=== PATIENT | female | born 1935 | race Caucasian/White ===

== ENCOUNTER 2018-04-04 12:23 | Inpatient (IN) | payer OTHER ==
[~2018-04-04] VITALS: Ht 162.6 cm; Wt 89.8 kg
[~2018-04-04 12:23] MED LIST: ACETAMINOPHEN-1 EAC3 PO; ADVAIR 250-501 EACH INH; ALPRAZOLAM0.25 M1 PO; AMBIEN (MONOGRAP5 MG PO; AMBIEN5 M1 PO; BACTRIM DS TAB1 EACH PO; BETAMETHASONE D0.05% TOP; CRANBERRY400 M3 PO; DIOVAN80 M1 PO; DIOVAN80 MG PO; DOXEPIN HCL25 MG PO; ESCITALOPRAM OX10 MG PO; FISH OIL CONC1000 M1 PO; FUROSEMIDE20 M1 PO; HYDROXYZINE HCL50 M1 PO; LASIX40 M1 PO; LEXAPRO 20MG M20 MG PO; LIPITOR20 M2 PO; LOPRESSOR 25MG25 MG PO; LYRICA100 M1 PO; LYRICA150 M1 PO; LYRICA150 MG PO; LYRICA300 M1 PO; METAMUCIL PLUS1 EACH PO; MONTELUKAST SOD10 M1 PO; MULTIPLE VITAM1 EAC2 PO; MYRBETRIQ25 M1 PO; NEXIUM40 M1 PO; OXYBUTYNIN CHLO10 M1 PO; PERCOCET 325 MG1 TA2 PO; PERCOCET 5-3251 EACH PO; PERMETHRIN60 GM TOP; PLAVIX75 M1 PO; PROMETHAZINE HC25 M3 PO; SPIRIVA18 MCG INH; TOPROL XL25 MG PO; TRAMADOL HCL50 M1 PO; VALSARTAN160 M1 PO; VITAMIN B-12500 MC2 PO; VITAMIN D31000 UNI1 PO
--- NOTE | 2018-04-04 13:23 | ED SKIN/ALLERGY COMPLAINT ---
History of Present Illness General Chief Complaint: General Adult Stated Complaint: "WHOLE BODY ITCHING" SEEN YESTERDAY FOR SAME Source: patient, family, old records Exam Limitations: no limitations Allergies Coded Allergies: Penicillins (RASH 07/28/16) adhesive (ITCHY AND RASH 07/28/16) cephalexin (From KEFLEX) (RASH AND NAUSEA 07/28/16) doxycycline (RASH AND NAUSEA 07/28/16) erythromycin base (RASH AND NAUSEA 07/28/16) nitrofurantoin (RASH 07/28/16) Reconcile Medications Alprazolam 0.25 MG TABLET 1 TAB PO TID ANXIETY (Reported) Atorvastatin Calcium (Lipitor) 20 MG TABLET 1 TAB PO DAILY CHOLESTEROL ( Reported) Clopidogrel Bisulfate (Plavix) 75 MG TABLET 1 TAB PO DAILY BLOOD THINNER ( Reported) Escitalopram Oxalate 10 MG TABLET 1 TAB PO DAILY MENTAL HEALTH (Reported) Esomeprazole (Nexium) 40 MG CAPSULE.DR 1 CAP PO DAILY GI (Reported) Hydroxyzine Hydrochloride (Atarax) 50 MG TAB 1 TAB PO TID PRN itching Montelukast Sodium 10 MG TABLET 1 TAB PO DAILY ALLERGIES/RESP (Reported) Oxybutynin Chloride (Oxybutynin Chloride ER) 10 MG TAB.ER.24 1 TAB PO DAILY BLADDER (Reported) Permethrin 5 % CREAM..G. 1 PARKER TOP ONCE scabies massage into skin from head to soles of feet one time, leave on for 8-14 hours then remove by thorough washing Pregabalin (Lyrica) 300 MG CAPSULE 1 CAP PO BID NEUROPATHY (Reported) Tramadol HCl 50 MG TABLET 1 TAB PO DAILY PRN PAIN (Reported) Valsartan 160 MG TABLET 1 TAB PO DAILY BP (Reported) Zolpidem Tartrate (Ambien) 5 MG TABLET 1 TAB PO PRN SLEEP (Reported) Triage Note: 82 Y/O FEMALE C/O CONTINUED ITCHING TO ENTIRE BODY. WAS EVAL'D BY PMD TWICE AND IN ED YESTERADY AND HAS HAD NO RELIEF WITH PRESCRIPTIONS. RECEIVED AN IM SHOT YESTERDAY (UNKNOWN MED PER PT) WHICH SEEMED TO PROVIDE SOME RELIEF. Triage Nurses Notes Reviewed? yes Onset: Gradual Duration: day(s): Timing: recent history Severity: moderate Location: generalized HPI: 82yo female presents to ED complaining of severe itching and rash 4 days. Patient states that she was in [place] for 3 months, she returned to [place] on 03/27. A few days after returning she began developing rash within intense itching. Patient saw her primary care doctor, Dr. Massey, twice over the past few days. He prescribed her prednisone taper. She was seen and evaluated here in the emergency department yesterday and was prescribed permethrin and Benadryl. Patient states despite use of multiple medications her itching has persisted. Patient is very uncomfortable, cannot sit still. She has no history of a similar incident in the past. She denies changes in medications, soaps, detergents. No family members have similar symptoms. She denies fevers, chills , abdominal pain, vomiting. (Marcela Rowley) Vital Signs & Intake/Output Vital Signs & Intake/Output Vital Signs Date Time Temp Pulse Resp B/P B/P Pulse O2 O2 Flow FiO2 Mean Ox Delivery Rate 04/04 1507 97.4 89 18 162/80 92 Room Air 04/04 1243 96.5 85 18 157/92 99 Room Air (Hina ZULETA,Hiro Figueroa) Past History Travel History Traveled to [place] past 21 day No Medical History Any Pertinent Medical History? 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 No (Marcela Rowley) Review of Systems Review of Systems Constitutional: Reports: no symptoms. EENTM: Reports: no symptoms. Respiratory: Reports: no symptoms. Cardiovascular: Reports: no symptoms. GI: Reports: no symptoms. Genitourinary: Reports: no symptoms. Musculoskeletal: Reports: no symptoms. Skin: Reports: see HPI. Neurological/Psychological: Reports: no symptoms. Hematologic/Endocrine: Reports: no symptoms. Immunologic/Allergic: Reports: no symptoms. All Other Systems: Reviewed and Negative (Marcela Rowley) Physical Exam Physical Exam General Appearance: well developed/nourished, alert, awake, moderate distress Head: atraumatic, normal appearance Eyes: Bilateral: normal appearance. Ears, Nose, Throat: hearing grossly normal Neck: normal inspection, supple, full range of motion Respiratory: normal breath sounds, no respiratory distress, lungs clear Cardiovascular: regular rate/rhythm Back: normal inspection, normal range of motion Extremities: normal range of motion Neurologic/Psych: awake, alert, oriented x 3 Skin: scabbing maculo papular rash to trunk and extremities with excoriations present, no burrows, no swelling or warmth (Marcela Rowley) Progress Differential Diagnosis: abscess/cellulitis, anaphylaxis, contact dermatitis, drug reaction, erythema multiforme, piyriasis rosea, shingles, urticaria, neurologic disorder, malignancy, autoimmune condition, inflammatory process, scabies (Marceal Rowley) Plan of Care: Orders Procedure Date/time Status Regular Diet 04/05 B Active Patient Data 04/04 1703 Active TSH REFLEX 04/04 1322 Complete HIGH SENSITIVITY CRP 04/04 1322 Complete COMPREHENSIVE METABOLIC PANEL 04/04 1322 Complete CBC WITHOUT DIFFERENTIAL 04/04 1322 Complete Laboratory Tests 04/04/18 1345: Anion Gap 15, Estimated GFR > 60, BUN/Creatinine Ratio 17.5, Glucose 115 H, Calcium 9.6, Total Bilirubin 0.8, AST 35, ALT 39, Alkaline Phosphatase 111, C- React Prot High Sens 1.2, Total Protein 7.3, Albumin 4.4, Globulin 2.9, Albumin/ Globulin Ratio 1.5, TSH &T3 &Free T4 Intrp 1.980, CBC w Diff MAN DIFF ORDERED, RBC 4.84, MCV 85.2, MCH 27.5, MCHC 32.3 L, RDW 15.7 H, MPV 8.9, Gran % 89.7 H , Lymphocytes % 7.9 L, Monocytes % 1.7, Eosinophils % 0.4, Basophils % 0.3, Absolute Granulocytes 10.4 H, Absolute Lymphocytes 0.9 L, Absolute Monocytes 0.2, Absolute Eosinophils 0, Absolute Basophils 0, Platelet Estimate VERIFIED BY SMEAR, Anisocytosis 1+ Patient's labs are within normal limits. Mild leukocytosis, possibly related to her recent steroid use. Patient remains uncomfortable, in moderate distress relating to her itching. Patient does have a beneficial response with IV Ativan. Etiology of her pruritus is unknown however she has intractable pruritus. Patient has been seen her primary care doctor twice, was seen yesterday in the emergency department, she has failed outpatient treatment modalities. The patient does not feel safe going home based on her persistent symptoms. Patient requires further evaluation including possible consults such as infectious disease. Dr. Santamaria present to see and evaluate the patient agrees with this plan. Physical hospitalist Dr. Christina regarding this patient's general medicine admission. (Jennifer STONE,Marcela Ashton) Comments: 04/04/2018 3:59:19 PM patient has returned from [place] after 4 months. She denies swimming in the ocean. She denies using a hot tub. She denies any recent medical occasion changes except for the discontinuation of Lyrica at the suggestion of her primary care physician. No other occupants of the house in [place] have similar symptoms. There are been no recent changes in laundry detergents or body soaps. Evaluation shows no eosinophilia to suggest an allergic reaction or elevation of white blood cell count to suggest leukemia or lymphoma. The patient's renal functions do not show renal failure. Plan symptomatic care and follow-up with primary care physician or bounty hunter. 04/04/2018 4:42:24 PM today. the patient continues to have intractable pruritus and her aggressive scratching his begun to excoriate her skin. This patient has failed outpatient management via her primary care physician with steroids and Benadryl and is also had 2 emergency department visits. She requires hospitalization for investigation of the underlying cause for her pruritus. Dermatologic conditions such as ectopic dermatitis psoriasis should be investigated, systemic causes such as renal failure, liver disease and the metal logic/[place] proliferative disorders and malignancy should be evaluated. Neurologic causes such as multiple sclerosis and psychogenic causes such as depression or anxiety and conversion should be investigated as well. (Hina ZULETA,Hiro Figueroa) Departure Departure Disposition: STILL A PATIENT Condition: Stable Clinical Impression Primary Impression: Pruritus Secondary Impressions: Multiple excoriations, Rash Referrals: Chico Massey MD (PCP/Family) Departure Forms: Customer Survey General Discharge Information Admission Note Spoke With: Shae Douglas MD Documentation of Exam: Documentation of any treatments & extenuating circumstances including Concerns Regarding Discharge (functional status, medication knowledge or non-compliance, living conditions, etc.) that warrant an admission rather than observation: Patient has intractable pruritus and is in moderate distress, she requires IV medications, infectious disease consult, possible psychiatric consult, failed outpatient therapy, premature discharge medically unsafe] (Jennifer STONE,Marcela Ashton) PA/PUBLIC HEALTH SPECIALIST Co-Sign Statement Statement: ED Attending supervision documentation- [x] I saw and evaluated the patient. I have also reviewed all the pertinent lab results and diagnostic results. I agree with the findings and the plan of care as documented in the PA's/PUBLIC HEALTH SPECIALIST's documentation. Patient returns to the emergency department for evaluation of severe pruritic rash. Physical examination reveals an excoriated maculopapular rash primarily of the trunk and extremities. [] I have reviewed the ED Record and agree with the PA's/PUBLIC HEALTH SPECIALIST's documentation. [] Additions or exceptions (if any) to the PAs/PUBLIC HEALTH SPECIALIST's note and plan are summarized below: [] (Hina ZULETA,Hiro Figueroa)
[2018-04-04 14:11] LABS: ABSOLUTE BASOPHIL COUNT 0 /CUMM (0.0-0.2); ABSOLUTE EOSINOPHIL COUNT 0 /CUMM (0.0-0.7); ABSOLUTE GRANULOCYTE CT 10.4 /CUMM (1.4-6.5); ABSOLUTE LYMPH COUNT 0.9 /CUMM (1.2-3.4); ABSOLUTE MONOCYTE COUNT 0.2 /CUMM (0.10-0.60); BASOPHIL % 0.3 % (0.0-2.0); EOSINOPHIL % 0.4 % (0-5); GRANULOCYTE % 89.7 % (42.2-75.2); HEMATOCRIT 41.2 % (37-47); MEAN CORPUSCULAR HGB 27.5 PG (27.0-31.0); MEAN CORPUSCULAR HGB CONC 32.3 G/DL (33.0-37.0); MEAN CORPUSCULAR VOLUME 85.2 FL (81.0-99.0); MEAN PLATELET VOLUME 8.9 FL (7.4-10.4); PLATELET COUNT 467 /CUMM (130-400); RBC DISTRIBUTION WIDTH 15.7 % (11.5-14.5); RED BLOOD CELL CT 4.84 /CUMM (4.20-5.40); WHITE BLOOD CELL COUNT 11.6 /CUMM (4.8-10.8)
[2018-04-04] MEDS ORDERED: TRAZODONE HCL50 M1 PO (17:24)
--- NOTE | 2018-04-04 17:24 | History & Physical ---
Pasquale ZULETA,[facility] 04/04/18 7493: General Information and HPI MD Statement: I have seen and personally examined IRA PERALTA and documented this H&P. The patient is a 82 year old F who presented with a patient stated chief complaint of [intense pruritus]. Source of Information: patient, family History of Present Illness: 82 -year-old woman with past medical history of hyp TIA, COPD, HYPertension, diastolic congestive heart failure, hyperlipidemia, anxiety, fibromyalgia, and depression came to [facility] with complaints of pruritus. Patient was in usual state of health until this Friday. Patient just came from [place] a week ago, after 2 days patient developed itching and rash. She went to her primary care physician Dr. Nogueira who gave her clobetasol cream. Patient itching and rash worsened and hence she went to Dr. Nogueira again on Friday who gave her a tapering dose of steroids. Patient symptoms worsened and hence she came to [facility] yesterday who gave permethrin suspecting scabies. Patient says her symptoms didn't improve after one application of permethrin. Patient has similar history of itching in December when she was in [place] and was given steroids by mouth. Patient also was admitted for anxiety in February for 4 days and was given Xanax. Patient continued having itching. This time patient developed intense rash associated with itching initially started in her buttock, arms and spread all over her body. This is not associated with any fever, chills, nausea, vomiting, chest pain, dysphagia, shortness of breath. Patient uses Premarin cream for vaginal dryness. Patient also has? Cardiac implant for evaluation of her syncope which was placed at [place] few years ago. last interrogated in August 2017. Allergies/Medications Allergies: Coded Allergies: Penicillins (RASH 07/28/16) adhesive (ITCHY AND RASH 07/28/16) cephalexin (From KEFLEX) (RASH AND NAUSEA 07/28/16) doxycycline (RASH AND NAUSEA 07/28/16) erythromycin base (RASH AND NAUSEA 07/28/16) nitrofurantoin (RASH 07/28/16) Home Med list Alprazolam 0.25 MG TABLET 1 TAB PO TID ANXIETY (Reported) Atorvastatin Calcium (Lipitor) 20 MG TABLET 1 TAB PO DAILY CHOLESTEROL ( Reported) Cholecalciferol (Vitamin D3) (Vitamin D) (Unknown Strength) TABLET (Unknown Dose) PO DAILY SUPPLEMENT (Reported) Clopidogrel Bisulfate (Plavix) 75 MG TABLET 1 TAB PO DAILY BLOOD THINNER ( Reported) Cranberry Fruit (Cranberry) (Unknown Strength) TABLET (Unknown Dose) PO DAILY SUPPLEMENT (Reported) Cyanocobalamin (Vitamin B-12) (Unknown Strength) TABLET (Unknown Dose) PO DAILY SUPPLEMENT (Reported) Escitalopram Oxalate 10 MG TABLET 1 TAB PO DAILY MENTAL HEALTH (Reported) Esomeprazole (Nexium) 40 MG CAPSULE.DR 1 CAP PO DAILY GI (Reported) Hydroxyzine Hydrochloride (Atarax) 50 MG TAB 1 TAB PO TID PRN itching Montelukast Sodium 10 MG TABLET 1 TAB PO DAILY ALLERGIES/RESP (Reported) Multiple Vitamin (Multivitamins) 1 EACH TABLET 1 TAB PO DAILY SUPPLEMENT ( Reported) Melba-3 Fatty Acids/Fish Oil (Fish Oil 1,000 MG Softgel) (Unknown Strength) CAPSULE (Unknown Dose) PO DAILY SUPPLEMENT (Reported) Permethrin 5 % CREAM..G. 1 PARKER TOP ONCE scabies massage into skin from head to soles of feet one time, leave on for 8-14 hours then remove by thorough washing Prednisone 10 MG TABLET STEROID TAPER (Reported) Tramadol HCl 50 MG TABLET 1 TAB PO DAILY PRN PAIN (Reported) Trazodone HCl 50 MG TABLET 1 TAB PO QHS SLEEP (Reported) Valsartan 160 MG TABLET 1 TAB PO DAILY BP (Reported) Compliance With Home Meds: GOOD Past History Travel History Traveled to [place] past 21 day No Medical History Neurological: TIA EENT: NONE Cardiovascular: hypertension, hyperlipidemia Respiratory: COPD, PNEUMOTHORAX S/P CHOLEY 2013 Gastrointestinal: GERD Hepatic: NONE Renal: NONE Musculoskeletal: LEFT ANKLE FUSION Psychiatric: anxiety, insomnia Endocrine: NONE Blood Disorders: NONE Cancer(s): NONE 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 Home Who Do You Live With? spouse Services at Home: None Primary Language: Georgian Smoking Status: Never Smoked ETOH Use: denies use Functional Ability ADLs Independent: dressing, eating, toileting, bathing. Ambulation: walker IADLs Independent: shopping, finances, food prep, telephone, medication admin. Needs Assist: housework, transportation. Review of Systems Review of Systems Constitutional: Reports: no symptoms, see HPI. Cardiovascular: Reports: no symptoms. Respiratory: Reports: no symptoms. GI: Reports: no symptoms. Genitourinary: Reports: no symptoms. Musculoskeletal: Reports: no symptoms. Skin: Reports: erythema, rash. Exam & Diagnostic Data Last 24 Hrs of Vital Signs/I&O Vital Signs Date Time Temp Pulse Resp B/P B/P Pulse O2 O2 Flow FiO2 Mean Ox Delivery Rate 04/04 1908 97.5 84 18 150/84 95 Room Air Room Air 04/04 1811 97.6 89 18 165/95 92 Room Air 04/04 1507 97.4 89 18 162/80 92 Room Air 04/04 1243 96.5 85 18 157/92 99 Room Air Intake & Output 04/04 1600 04/04 0800 04/04 0000 Intake Total Output Total Balance Patient 190 lb Weight Weight Reported by Patient Measurement Method Physical Exam General Appearance Alert, Oriented X3, Cooperative, No Acute Distress Cardiovascular Regular Rate, Normal S1, Normal S2, No Murmurs Lungs Clear to Auscultation Abdomen Soft, No Tenderness, No Hepatospenomegaly Neurological Normal Speech, Strength at 5/5 X4 Ext, Normal Tone, Sensation Intact Extremities No Edema Body Front and Back (Adult) 1) MULTIPLE RED SPOTS 2) 3) 4) 5) 6) 7) 8) 9) Last 24 Hrs of Labs/Magdy: Laboratory Tests 04/04/18 1345: Anion Gap 15, Estimated GFR > 60, BUN/Creatinine Ratio 17.5, Glucose 115 H, Calcium 9.6, Total Bilirubin 0.8, AST 35, ALT 39, Alkaline Phosphatase 111, C- React Prot High Sens 1.2, Total Protein 7.3, Albumin 4.4, Globulin 2.9, Albumin/ Globulin Ratio 1.5, TSH &T3 &Free T4 Intrp 1.980, CBC w Diff MAN DIFF ORDERED, RBC 4.84, MCV 85.2, MCH 27.5, MCHC 32.3 L, RDW 15.7 H, MPV 8.9, Gran % 89.7 H , Lymphocytes % 7.9 L, Monocytes % 1.7, Eosinophils % 0.4, Basophils % 0.3, Absolute Granulocytes 10.4 H, Absolute Lymphocytes 0.9 L, Absolute Monocytes 0.2, Absolute Eosinophils 0, Absolute Basophils 0, Platelet Estimate VERIFIED BY SMEAR, Anisocytosis 1+ Assessment/Plan Assessment: 82 -year-old woman with past medical history of CVA, hypertension, hyperlipidemia, fibromyalgia, and depression came to [facility] with complaints of pruritus. Patient being admitted in [facility] for further evaluation and management. Admission vitals Temperature 96.5, pulse rate 83, respiratory rate 18, blood pressure 157/92, saturating 99 at room air Admission labs WBC 11.6, hemoglobin 13.3, platelet count 467, sodium 134, potassium 5.1, BUN 14 , creatinine 0.8, AST 35, ALP 39, C-reactive protein 1.2, TSH 1.9 ED treatment Ativan 1 mg once, Benadryl IV 25 mg once, Assessment and plan Intense pruritus Rule out scabies * Admitted in [facility] * Contact precaution in view of suspected scabies. Star permethrin cream to be applied every night for 8 hours followed by shower. Family members need to be treated. We will get infectious disease/dermatology on board. * All her medications was reconciled. Xanax is in one of the differential to cause pruritus. * Pruritus-hydroxyzine 25 mg 3 times a day, Benadryl 50 mg IV every 8 when necessary, steroids. * We will check thyroid function study, HbA1c. LFTs-normal. Renal numbers normal. * Patient denies history of fooD/detergents/new medication use other than Xanax. * Patient was on Lyrica for fibromyalgia. Was on 50 mg which the patient herself increased to 300 mg since November 2017. She then eventually stopped using Lyrica for 2 weeks in February. Lyrica also sometimes causes pruritus. * Of note given the nature of appearance of her rash [left shoulder, bilateral arms, left fifth finger on the sites, bilateral legs, buttock, back] recent travel, high suspicion for scabies at present. Patient has similar history many years ago and saw Dr. Barajas. We will try to get records on Friday. Code-full code Diet-regular diet As Ranked By This Provider Problem List: 1. Multiple excoriations 2. Pruritus Core Measures/Misc (08/10) Acute Coronary Syndrome ACS Diagnosis: No Congestive Heart Failure Congestive Heart Failure Diagnosis No Cerebrovascular Accident CVA/TIA Diagnosis: No VTE (View Protocol) VTE Risk Factors Age>40 No Mechanical VTE Prophylaxis d/t Other No VTE Pharm Prophylaxis d/t Other Sepsis (View protocol) Sepsis Present: No Gosia Angela MD 04/04/182039: Resident Review Statement Resident Statement: examined this patient, discussed with internet marketing director, agreed with internet marketing director Other Findings: 82-year-old female with past medical history of hypertension, TIA, fibromyalgia, COPD, COngestive heart failure, depression and anxiety who comes in with intractable pruritus and generalized rash for the past 5 days. She denies any bug bites, mosquito bites, change and creams or soaps or detergents, sharing of clothes or other personnel at night with others. She was recently in [place] where itching started about a month ago. Itching at that time was moderately improved by hydroxyzine but persisted till 5 days ago when he began to worsen and was accompanied by a rash. She lives with her who does not have similar symptoms. She recalls a distant history of similar skin rash that was treated by rn otolaryngology Dr. Barajas. She however would not like to see Dr. Barajas again and would prefer a different rn otolaryngology. She failed outpatient treatment with prednisone taper and clobetasol cream from her primary care, and was given a one-time dose of permethrin cream in the ER yesterday has symptoms have persisted despite these treatments Assessment 1. Intractable pruritus and rash rule out scabies vs medication induced itching (low likelihood from lyrica) Plan -Admit to general medicine floor -IV Benadryl 50 mg every 8 hours; alternate with p.o. hydroxyzine 25 mg every 8 hours -Permethrin cream applied daily-keep on for 8-14 hours x 7days -Benadryl cream for itching -Completed her steroid taper then stop -Hold lyrica for now -Continue her important home medications -Contact precautions for possible scabies -ID consult in a.m. -Consider dermatology consult -Obtain records from Dr. Barajas's office on Friday Taye ZULETA, [facility] 04/04/182058: Attending MD Review Statement Attending Statement Attending MD Statement: examined this patient, discuss w/resident/PA/SUPERVISOR MAILS, agreed w/resident/PA/SUPERVISOR MAILS, discussed with family, reviewed images, amended to note Attending Assessment/Plan: 82 yo F with h/o HTN, TIA, fibromyalgia, recurrent syncope with implantable loop recorder, COPD, anxiety, depression is here for evaluation of intractable pruritus and diffuse erythematous rash that started 5 days ago, mostly on the buttock, arms and back, sparing the palm/ soles and mucosa. She saw her PCP twice this week, was prescribed clobetasol cream and prednisone taper with no effect. She was then seen in the ER one day prior, was given permethrin and atarax but no relief. Pruritus is not worse at night. Patient spends the winter months in [place] and she returned 1 week back. She reports having pruritus 1 month ago for which she was prescribed hydroxyzine and permethrin. She had some relief but pruritus did not resolve. She was then admitted to a [place] hospital (february 2018) for an anxiety attack and subsequently started on Xanax (new medication). Of note, she was on Lyrica 150 mg for fibromyalgia, but she increased the dose of 300 mg since Nov 2017. She has stopped taking it for past 1 week. She denies tick/ insect bites, new detergents, soaps, no personal sharing of items, no swimming in the ocean/ hot tub, etc. She does report a similar rash many years ago, for which she had seen Dr. Barajas but cannot recall exact details of treatment or diagnosis. Vitals stable. Exam: Diffuse multiple small erythematous papules with excoriations noted on the occipital scalp, left shoulder, bilateral extensor aspect of forearm/ elbow, upper abdomen, buttock and lower extremities, spares palm and soles and web spaces. No lesions over buccal mucosa. Labs: WBC 11.6, eosinophils 0.4 (normal), Na 134, bicarb 19, glucose 115, Renal functions and LFTs normal, CRP normal, TSH normal. Assessment and plan: 1. Intractable pruritus 2. Diffuse erythematous rash with excoriations due to itching. Evaluation shows no eosinophilia to suggest an allergic reaction or renal diseaseor cholestasis. The rash could suggest scabies however she was treated with permethrin, not sure if she was compliant though. Also, her has no similar symptoms. Medications such as xanax or lyrica could cause dermatitis although seem less likely. Malignancy needs to be ruled out. 3. Failed outpatient therapy 4. Leukocytosis is steroid induced 5. H/o fibromyalgia 6. H/o anxiety, depression - Admit to General medicine - Maintain contact precautions - ID consult in AM - Check Hb1c and urinalysis - Obtain Chest Xray and HIV - Continue permethrin cream overnight, PRN benadryl and hydroxyzine - Complete prednisone taper - Hold lyrica - Pain management with tramadol - Consider Dermatology consult if symptoms do not improve patient does not wish to see Dr. Barajas - Obtain old records from Dr. Barajas's office. DVT ppx Lovenox. Full code.
[2018-04-04] MEDS ORDERED: VITAMIN D2000 UNI1 PO (17:25)
[2018-04-04] MEDS ORDERED: VITAMIN B-121000 MC3 PO (17:25)
[2018-04-04] MEDS ORDERED: PREDNISONE10 M2 PO (17:25)
[2018-04-04] MEDS ORDERED: MULTIVITAMINS1 EAC9 PO (17:26)
[2018-04-04] MEDS ORDERED: FISH OIL 1,0001 EAC1 PO (17:26)
[2018-04-04] MEDS ORDERED: CRANBERRY400 M3 PO (17:26)
[2018-04-04 19:20] VITALS: BP 138/76
--- NOTE | 2018-04-04 21:07 | Admission Certification ---
Admission Certification Certification Statement - As attending physician, I certify that at the time of - admission, based on clinical presentation, severity of - symptoms, need for further diagnostic testing and - therapeutic interventions, and risk of adverse outcomes - without in-hospital treatment, in my clinical assessment, - this patient requires an acute hospital stay for a minimum - of two nights or longer. I have also considered psychsocial - factors such as support system, advanced age, financial - issues, cognitive issues, and failed out-patient treatments, - past re-admission history, safety of patient, and lack of - compliance as applicable. Specific rationale supporting this admission is: Intractable pruritus and diffuse erythematous rash, failed multiple outpatient treatments, requires inpatient admission for further evaluation and treatment.
[2018-04-04 21:58] VITALS: BP 153/72
--- NOTE | 2018-04-05 06:14 | PN- Housestaff ---
Pasquale ZULETA,Kassandra 04/05/18 0614: Subjective Follow-up For: Intense pruritus Subjective: Patient seen and examined at bedside. No overnight events. Complaints of itching which has got little bit better compared to yesterday. Review of Systems Constitutional: Reports: no symptoms, see HPI. Objective Last 24 Hrs of Vital Signs/I&O Vital Signs Date Time Temp Pulse Resp B/P B/P Pulse O2 O2 Flow FiO2 Mean Ox Delivery Rate 04/05 08 88 148/78 04/05 0647 97.6 81 20 158/98 92 04/04 2158 98.3 93 20 153/72 100 04/04 1920 97.5 90 20 138/76 92 Room Air 04/04 1908 97.5 84 18 150/84 95 Room Air Room Air 04/04 1811 97.6 89 18 165/95 92 Room Air 04/04 1507 97.4 89 18 162/80 92 Room Air 04/04 1243 96.5 85 18 157/92 99 Room Air Intake & Output 04/05 1600 04/05 0800 04/05 0000 Intake Total 120 317 Output Total 200 300 Balance -80 17 Intake, IV 17 Intake, Oral 120 300 Number 0 Bowel Movements Output, Urine 200 300 Patient 198 lb Weight Physical Exam General Appearance: Alert, Oriented X3, Cooperative, No Acute Distress Cardiovascular: Regular Rate, Normal S1, Normal S2, No Murmurs Lungs: Clear to Auscultation Abdomen: Soft, No Tenderness, No Hepatospenomegaly Neurological: Strength at 5/5 X4 Ext, Normal Tone, Sensation Intact Extremities: Multiple rashes throughout the body with evidence of scratch [place] Current Medications: Current Medications Sig/Ranulfo Start time Last Medication Dose Route Stop Time Status Admin Acetaminophen 650 MG Q6P PRN 04/04 2015 AC PO Alprazolam 0.25 MG ONCE ONE 04/05 0345 DC 04/05 PO 04/05 0346 0341 Alprazolam 0.25 MG TID 04/04 2100 AC 04/05 PO 04/11 Atorvastatin Calcium 20 MG DAILY 04/05 900 AC 04/05 PO 08 Clopidogrel Bisulfate 75 MG DAILY 04/05 09 AC 04/05 PO 08 Diphenhydramine HCl 50 MG Q8 04/04 2200 AC 04/05 IV 0634 Diphenhydramine HCl 1 PARKER TID 04/04 2100 AC 04/05 TOP 0814 Diphenhydramine HCl 0 .STK-MED ONE 04/04 1603 DC .ROUTE Diphenhydramine HCl 25 MG ONCE ONE 04/04 1545 DC / IV 04/04 1546 1605 Escitalopram Oxalate 10 MG DAILY 04/05 0900 AC 04/05 PO 0813 Hydroxyzine HCl 25 MG TID 04/04 2100 AC 04/05 PO 0813 Lorazepam 0 .STK-MED ONE 04/04 1603 DC .ROUTE Lorazepam 1 MG ONCE ONE 04/04 1545 DC / IV 04/04 1546 1605 Lorazepam 0 .STK-MED ONE 04/04 1346 DC .ROUTE Lorazepam 1 MG ONCE ONE 04/04 1330 DC 04/04 IV 04/04 1331 1348 Losartan Potassium 50 MG DAILY 04/05 0900 AC 04/05 PO 0813 Melatonin 3 MG AT BEDTIME 04/05 0030 AC 04/05 PO 0056 Montelukast Sodium 10 MG DAILY 04/05 0900 AC 04/05 PO 0813 Omeprazole 40 MG DAILY AC 04/05 0700 AC 04/05 PO 0634 Permethrin 1 PARKER 2000 04/04 2000 AC 04/04 TOP 04/10 2001 222 Prednisone 10 MG DAILY 04/08 0900 AC PO 04/10 09 Prednisone 20 MG DAILY 04/05 0900 AC 04/05 PO 04/07 0901 1146 Tramadol HCl 50 MG DAILY PRN 04/04 2030 AC PO Trazodone HCl 50 MG AT BEDTIME 04/04 2100 AC 04/04 PO 210 Last 24 Hrs of Lab/Magdy Results Last 24 Hrs of Labs/Mics: Laboratory Tests 04/05/18 0825: Anion Gap 14, Estimated GFR > 60, BUN/Creatinine Ratio 15.6, Hemoglobin A1c Pending, CBC w Diff NO MAN DIFF REQ, RBC 4.81, MCV 84.9, MCH 27.6, MCHC 32.5 L, RDW 15.1 H, MPV 8.7, Gran % 72.9, Lymphocytes % 15.3 L, Monocytes % 8.1, Eosinophils % 3.4, Basophils % 0.3, Absolute Granulocytes 8.3 H, Absolute Lymphocytes 1.8, Absolute Monocytes 0.9 H, Absolute Eosinophils 0.4, Absolute Basophils 0, HIV 1&2 Ab Western Blot NONREACTIVE 04/05/18 0430: Urine Color YEL, Urine Clarity CLEAR, Urine pH 7.0, Ur Specific [place] 1.010, Urine Protein NEG, Urine Ketones NEG, Urine Nitrite NEG, Urine Bilirubin NEG, Urine Urobilinogen 0.2, Ur Leukocyte Esterase NEG, Ur Microscopic EXAM NOT REQUIRED, Urine Hemoglobin NEG, Urine Glucose NEG 04/04/18 1345: Anion Gap 15, Estimated GFR > 60, BUN/Creatinine Ratio 17.5, Glucose 115 H, Calcium 9.6, Total Bilirubin 0.8, AST 35, ALT 39, Alkaline Phosphatase 111, C- React Prot High Sens 1.2, Total Protein 7.3, Albumin 4.4, Globulin 2.9, Albumin/ Globulin Ratio 1.5, TSH &T3 &Free T4 Intrp 1.980, CBC w Diff MAN DIFF ORDERED, RBC 4.84, MCV 85.2, MCH 27.5, MCHC 32.3 L, RDW 15.7 H, MPV 8.9, Gran % 89.7 H , Lymphocytes % 7.9 L, Monocytes % 1.7, Eosinophils % 0.4, Basophils % 0.3, Absolute Granulocytes 10.4 H, Absolute Lymphocytes 0.9 L, Absolute Monocytes 0.2, Absolute Eosinophils 0, Absolute Basophils 0, Platelet Estimate VERIFIED BY SMEAR, Anisocytosis 1+ Assessment/Plan Assessment: 82 -year-old woman with past medical history of CVA, hypertension, hyperlipidemia, fibromyalgia, and depression came to [facility] with complaints of pruritus. Patient being admitted in [facility] for further evaluation and management. Assessment and plan Intense pruritus Rule out scabies * Contact precaution in view of suspected scabies. Continue permethrin cream to be applied every night for 8 hours followed by shower. Family members need to be treated. 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 * All her medications was reconciled. * Pruritus-hydroxyzine 25 mg 3 times a day, Benadryl 50 mg IV every 8 when necessary, steroids. * Patient denies history of fooD/detergents/new medication use other than Xanax. * Patient was on Lyrica for fibromyalgia. Was on 50 mg which the patient herself increased to 300 mg since November 2017. She then eventually stopped using Lyrica for 2 weeks in February. Lyrica also sometimes causes pruritus. Diet- heart healthy diet DVT prophylaxis-alps Lovenox Problem List: 1. Pruritus Pain Ratin Pain Location: none Pain Goal: Remain pain free Pain Plan: tylenol Tomorrow's Labs & Rationales: cbc,bep Vern ZULETA,Sofy 04/05/18 1207: Attending MD Review Statement Attending Statement Attending MD Statement: examined this patient, discuss w/resident/PA/CHANNEL TURNER, agreed w/resident/PA/CHANNEL TURNER, reviewed EMR data (avail), discussed with nursing, discussed with case mgmt, amended to note Attending Assessment/Plan: Patient seen and examined. Complaining of generalized pruritus. She is very anxious about her ongoing pruritus. Denies any overt pain. Denies nausea vomiting. Denies abdominal pain. On examination she has diffuse micropapular rash on her extremities and particularly her back. She does not have any abdominal distention. Abdomen is soft and nontender with normal bowel sounds. Plan: -Patient was started empirically on permethrin by the ER for scabies. Continue contact isolation. Continue treatment for now until evaluation by the dermatology service. -Patient should be evaluated by a sand mill operator for this pruritic rash that has not responded to different outpatient regimens. please place a dermatology consult today. -She was started on prednisone by her primary care provider with no improvement. Please taper off this regimen. -Continue current regimen for her pruritus with diphenhydramine orally and topically. Continue Xanax which she takes routinely for her anxiety. -Need for continued hospitalization will be determined after evaluation by the dermatology service.
[2018-04-05 06:47] VITALS: BP 158/98
--- NOTE | 2018-04-05 09:17 | RADIOLOGY REPORT ---
EXAMINATION: XR PORTABLE CHEST CLINICAL INFORMATION: COPD. COMPARISON: 09/12/17. 07/28/16. The scan of 12/01/15. TECHNIQUE: Portable frontal view of the chest was obtained. FINDINGS: The lungs are clear with no focal consolidation, mass lesion or other abnormality demonstrated. The pleural spaces are clear. Heart size is borderline enlarged without significant change. Calcific atherosclerotic changes are again demonstrated in the thoracic aorta. IMPRESSION: No acute cardiopulmonary disease demonstrated.
[2018-04-05 10:30] LABS: ABSOLUTE BASOPHIL COUNT 0 /CUMM (0.0-0.2); ABSOLUTE EOSINOPHIL COUNT 0.4 /CUMM (0.0-0.7); ABSOLUTE GRANULOCYTE CT 8.3 /CUMM (1.4-6.5); ABSOLUTE LYMPH COUNT 1.8 /CUMM (1.2-3.4); ABSOLUTE MONOCYTE COUNT 0.9 /CUMM (0.10-0.60); BASOPHIL % 0.3 % (0.0-2.0); EOSINOPHIL % 3.4 % (0-5); GRANULOCYTE % 72.9 % (42.2-75.2); HEMATOCRIT 40.8 % (37-47); MEAN CORPUSCULAR HGB 27.6 PG (27.0-31.0); MEAN CORPUSCULAR HGB CONC 32.5 G/DL (33.0-37.0); MEAN CORPUSCULAR VOLUME 84.9 FL (81.0-99.0); MEAN PLATELET VOLUME 8.7 FL (7.4-10.4); PLATELET COUNT 413 /CUMM (130-400); RBC DISTRIBUTION WIDTH 15.1 % (11.5-14.5); RED BLOOD CELL CT 4.81 /CUMM (4.20-5.40); WHITE BLOOD CELL COUNT 11.4 /CUMM (4.8-10.8)
--- NOTE | 2018-04-05 12:35 | Cons- Infect Disease ---
General Information and HPI Consulting Request Date of Consult: 04/05/18 Requested By: Taye ZULETA,Jerrica Reason for Consult: Persistent pruritus Source of Information: patient, old records Exam Limitations: no limitations History of Present Illness: This patient is an 82-year-old white female with a significant past medical history for COPD, digestive heart failure and depression. The patient was in her usual state of health approximately 5 days prior to admission she noticed significant neuritis on her upper extremities and back. Patient stated that she had the same issue on her lower extremities while she was in [place]. The patient recently returned back to [place] from [place] where she was seen by a metal bonding assembler. The metal bonding assembler told her that she had sand flea bites. She was evaluated in her primary care office 3 days prior to admission when she was given a course of steroids. She was then seen 1 day prior to admission in the emergency department and was started on permethrin for possible scabies. Patient's pruritus did not improve and she return to the emergency department. The patient was admitted for workup of pruritus and permethrin therapy. The patient has remained afebrile with only a mild elevation in her white blood cell count likely secondary to steroid therapy. She is sleeping comfortably when I arrive easily arousable and not scratching incessantly. Besides the pruritus she otherwise feels well. An extensive history on exposure performed without any positives. She has no other friends or family members that have similar symptoms. Allergies/Medications Allergies: Coded Allergies: Penicillins (RASH 07/28/16) adhesive (ITCHY AND RASH 07/28/16) cephalexin (From KEFLEX) (RASH AND NAUSEA 07/28/16) doxycycline (RASH AND NAUSEA 07/28/16) erythromycin base (RASH AND NAUSEA 07/28/16) nitrofurantoin (RASH 07/28/16) Home Med List: Alprazolam 0.25 MG TABLET 1 TAB PO TID ANXIETY (Reported) Atorvastatin Calcium (Lipitor) 20 MG TABLET 1 TAB PO DAILY CHOLESTEROL ( Reported) Cholecalciferol (Vitamin D3) (Vitamin D) (Unknown Strength) TABLET (Unknown Dose) PO DAILY SUPPLEMENT (Reported) Clopidogrel Bisulfate (Plavix) 75 MG TABLET 1 TAB PO DAILY BLOOD THINNER ( Reported) Cranberry Fruit (Cranberry) (Unknown Strength) TABLET (Unknown Dose) PO DAILY SUPPLEMENT (Reported) Cyanocobalamin (Vitamin B-12) (Unknown Strength) TABLET (Unknown Dose) PO DAILY SUPPLEMENT (Reported) Escitalopram Oxalate 10 MG TABLET 1 TAB PO DAILY MENTAL HEALTH (Reported) Esomeprazole (Nexium) 40 MG CAPSULE.DR 1 CAP PO DAILY GI (Reported) Hydroxyzine Hydrochloride (Atarax) 50 MG TAB 1 TAB PO TID PRN itching Montelukast Sodium 10 MG TABLET 1 TAB PO DAILY ALLERGIES/RESP (Reported) Multiple Vitamin (Multivitamins) 1 EACH TABLET 1 TAB PO DAILY SUPPLEMENT ( Reported) [place]-3 Fatty Acids/Fish Oil (Fish Oil 1,000 MG Softgel) (Unknown Strength) CAPSULE (Unknown Dose) PO DAILY SUPPLEMENT (Reported) Permethrin 5 % CREAM..G. 1 PARKER TOP ONCE scabies massage into skin from head to soles of feet one time, leave on for 8-14 hours then remove by thorough washing Prednisone 10 MG TABLET STEROID TAPER (Reported) Tramadol HCl 50 MG TABLET 1 TAB PO DAILY PRN PAIN (Reported) Trazodone HCl 50 MG TABLET 1 TAB PO QHS SLEEP (Reported) Valsartan 160 MG TABLET 1 TAB PO DAILY BP (Reported) Current Medications: Current Medications Sig/Ranulfo Start time Last Medication Dose Route Stop Time Status Admin Acetaminophen 650 MG Q6P PRN 04/04 2015 AC PO Alprazolam 0.25 MG ONCE ONE 04/05 0345 DC 04/05 PO 04/05 0346 0341 Alprazolam 0.25 MG TID 04/04 2100 AC 04/05 PO 04/119 0821 Atorvastatin Calcium 20 MG DAILY 04/05 09 AC 04/05 PO 08 Clopidogrel Bisulfate 75 MG DAILY 04/05 09 AC 04/05 PO 0813 Diphenhydramine HCl 50 MG Q8 04/04 2200 AC 04/05 IV 0634 Diphenhydramine HCl 1 PARKER TID 04/04 2100 AC 04/05 TOP 0814 Diphenhydramine HCl 0 .STK-MED ONE 04/04 1603 DC .ROUTE Diphenhydramine HCl 25 MG ONCE ONE 04/04 1545 DC 04/04 IV 04/04 1546 1605 Escitalopram Oxalate 10 MG DAILY 04/05 09 AC 04/05 PO 0813 Hydroxyzine HCl 25 MG TID 04/04 2100 AC 04/05 PO 0813 Lorazepam 0 .STK-MED ONE 04/04 1603 DC .ROUTE Lorazepam 1 MG ONCE ONE 04/04 1545 DC / IV 04/04 1546 1605 Lorazepam 0 .STK-MED ONE 04/04 1346 DC .ROUTE Lorazepam 1 MG ONCE ONE 04/04 1330 DC / IV 04/04 1331 1348 Losartan Potassium 50 MG DAILY 04/05 0900 AC 04/05 PO 0813 Melatonin 3 MG AT BEDTIME 04/05 0030 AC 04/05 PO 0056 Montelukast Sodium 10 MG DAILY 04/05 0900 AC 04/05 PO 0813 Omeprazole 40 MG DAILY AC 04/05 0700 AC 04/05 PO 0634 Permethrin 1 PARKER 04/04 AC 04/04 TOP 04/10 Prednisone 10 MG DAILY 04/08 0900 AC PO 04/10 09 Prednisone 20 MG DAILY 04/05 0900 AC 04/05 PO 04/07 0901 1146 Tramadol HCl 50 MG DAILY PRN 04/04 2030 AC PO Trazodone HCl 50 MG AT BEDTIME 04/04 2100 AC 04/04 PO 2102 Past History Travel History Traveled to [place] past 21 day No Medical History Blood Transfusion Hx: No Neurological: TIA EENT: NONE Cardiovascular: hypertension, hyperlipidemia Respiratory: COPD, PNEUMOTHORAX S/P CHOLEY 2013 Gastrointestinal: GERD Hepatic: NONE Renal: NONE Musculoskeletal: LEFT ANKLE FUSION Psychiatric: anxiety, insomnia Endocrine: NONE Blood Disorders: NONE Cancer(s): NONE 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 Home Who Do You Live With? spouse Services at Home: None Primary Language: Maltese Smoking Status: Never Smoked ETOH Use: denies use Functional Ability ADLs Independent: dressing, eating, toileting, bathing. Ambulation: walker IADLs Independent: shopping, finances, food prep, telephone, medication admin. Needs Assist: housework, transportation. ECHO Results (as available) EF% 60 Review of Systems Review of Systems Constitutional: Reports: see HPI. EENTM: Reports: no symptoms. Cardiovascular: Reports: no symptoms. Respiratory: Reports: no symptoms. GI: Reports: no symptoms. Genitourinary: Reports: no symptoms. Musculoskeletal: Reports: no symptoms. Skin: Reports: see HPI. Neurological/Psychological: Reports: no symptoms. Hematologic/Endocrine: Reports: no symptoms. Immunologic/Allergic: Reports: no symptoms. Exam & Diagnostic Data Last 24 Hrs of Vital Signs/I&O Vital Signs Date Time Temp Pulse Resp B/P B/P Pulse O2 O2 Flow FiO2 Mean Ox Delivery Rate 04/05 0813 88 148/78 04/05 0647 97.6 81 20 158/98 92 04/04 2158 98.3 93 20 153/72 100 04/04 1920 97.5 90 20 138/76 92 Room Air 04/04 1908 97.5 84 18 150/84 95 Room Air Room Air 04/04 1811 97.6 89 18 165/95 92 Room Air 04/04 1507 97.4 89 18 162/80 92 Room Air 04/04 1243 96.5 85 18 157/92 99 Room Air Intake & Output 04/05 1600 04/05 0800 04/05 0000 Intake Total 120 317 Output Total 200 300 Balance -80 17 Intake, IV 17 Intake, Oral 120 300 Number 0 Bowel Movements Output, Urine 200 300 Patient 198 lb Weight Physical Exam General Appearance: well developed/nourished, no apparent distress, alert, awake Head: atraumatic, normal appearance Eyes: Bilateral: PERRL, EOMI. Ears, Nose, Throat: normal pharynx Neck: normal inspection, supple Respiratory: normal breath sounds Cardiovascular: regular rate/rhythm Gastrointestinal: normal bowel sounds, soft, non-tender Extremities: normal inspection Skin: She has small "bites" around her wrist and ankles. Could be arthropod lesions. Excoriation on lower extremities. No insects noted. Last 24 Hours of Lab Results: Laboratory Tests 04/05 04/05 0825 0430 Chemistry Sodium (137 - 145 mmol/L) 135 L Potassium (3.5 - 5.1 mmol/L) 3.6 Chloride (98 - 107 mmol/L) 99 Carbon Dioxide (22 - 30 mmol/L) 21 L Anion Gap (5 - 16) 14 BUN (7 - 17 mg/dL) 14 Creatinine (0.5 - 1.0 mg/dL) 0.9 Estimated GFR (>60 ml/min) > 60 BUN/Creatinine Ratio (7 - 25 %) 15.6 Hemoglobin A1c (4.2 - 5.8 %) Pending Hematology CBC w Diff NO MAN DIFF REQ WBC (4.8 - 10.8 /CUMM) 11.4 H RBC (4.20 - 5.40 /CUMM) 4.81 Hgb (12.0 - 16.0 G/DL) 13.3 Hct (37 - 47 %) 40.8 MCV (81.0 - 99.0 FL) 84.9 MCH (27.0 - 31.0 PG) 27.6 MCHC (33.0 - 37.0 G/DL) 32.5 L RDW (11.5 - 14.5 %) 15.1 H Plt Count (130 - 400 /CUMM) 413 H MPV (7.4 - 10.4 FL) 8.7 Gran % (42.2 - 75.2 %) 72.9 Lymphocytes % (20.5 - 51.1 %) 15.3 L Monocytes % (1.7 - 9.3 %) 8.1 Eosinophils % (0 - 5 %) 3.4 Basophils % (0.0 - 2.0 %) 0.3 Absolute Granulocytes (1.4 - 6.5 /CUMM) 8.3 H Absolute Lymphocytes (1.2 - 3.4 /CUMM) 1.8 Absolute Monocytes (0.10 - 0.60 /CUMM) 0.9 H Absolute Eosinophils (0.0 - 0.7 /CUMM) 0.4 Absolute Basophils (0.0 - 0.2 /CUMM) 0 Serology HIV 1&2 Ab Western Blot (NONREACTIVE) NONREACTIVE Urines Urine Color (YEL,AMB,STR) YEL Urine Clarity (CLEAR) CLEAR Urine pH (5.0 - 8.0) 7.0 Ur Specific [place] (1.001 - 1.035) 1.010 Urine Protein (NEG,<30 MG/DL) NEG Urine Ketones (NEG) NEG Urine Nitrite (NEG) NEG Urine Bilirubin (NEG) NEG Urine Urobilinogen (0.1 - 1.0 EU/dl) 0.2 Ur Leukocyte Esterase (NEG) NEG Ur Microscopic EXAM NOT REQUIRED Urine Hemoglobin (NEG) NEG Urine Glucose (N MG/DL) NEG 04/04 1345 Chemistry Sodium (137 - 145 mmol/L) 134 L Potassium (3.5 - 5.1 mmol/L) 5.1 Chloride (98 - 107 mmol/L) 100 Carbon Dioxide (22 - 30 mmol/L) 19 L Anion Gap (5 - 16) 15 BUN (7 - 17 mg/dL) 14 Creatinine (0.5 - 1.0 mg/dL) 0.8 Estimated GFR (>60 ml/min) > 60 BUN/Creatinine Ratio (7 - 25 %) 17.5 Glucose (65 - 99 mg/dL) 115 H Calcium (8.4 - 10.2 mg/dL) 9.6 Total Bilirubin (0.2 - 1.3 mg/dL) 0.8 AST (14 - 36 U/L) 35 ALT (9 - 52 U/L) 39 Alkaline Phosphatase (<127 U/L) 111 C-React Prot High Sens (1.0 - 3.0 mg/L) 1.2 Total Protein (6.3 - 8.2 g/dL) 7.3 Albumin (3.5 - 5.0 g/dL) 4.4 Globulin (1.9 - 4.2 gm/dL) 2.9 Albumin/Globulin Ratio (1.1 - 2.2 %) 1.5 TSH &T3 &Free T4 Intrp (0.270 - 4.20 uIU/mL) 1.980 Hematology CBC w Diff MAN DIFF ORDERED WBC (4.8 - 10.8 /CUMM) 11.6 H RBC (4.20 - 5.40 /CUMM) 4.84 Hgb (12.0 - 16.0 G/DL) 13.3 Hct (37 - 47 %) 41.2 MCV (81.0 - 99.0 FL) 85.2 MCH (27.0 - 31.0 PG) 27.5 MCHC (33.0 - 37.0 G/DL) 32.3 L RDW (11.5 - 14.5 %) 15.7 H Plt Count (130 - 400 /CUMM) 467 H MPV (7.4 - 10.4 FL) 8.9 Gran % (42.2 - 75.2 %) 89.7 H Lymphocytes % (20.5 - 51.1 %) 7.9 L Monocytes % (1.7 - 9.3 %) 1.7 Eosinophils % (0 - 5 %) 0.4 Basophils % (0.0 - 2.0 %) 0.3 Absolute Granulocytes (1.4 - 6.5 /CUMM) 10.4 H Absolute Lymphocytes (1.2 - 3.4 /CUMM) 0.9 L Absolute Monocytes (0.10 - 0.60 /CUMM) 0.2 Absolute Eosinophils (0.0 - 0.7 /CUMM) 0 Absolute Basophils (0.0 - 0.2 /CUMM) 0 Platelet Estimate (ADEQUATE) VERIFIED BY SMEAR Anisocytosis 1+ Last 24 Hours of Magdy Results: No cultures Diagnostic Data Recent Imaging Findings: Chest x-ray no acute disease Assessment/Plan Assessment/Plan Impression: This patient is an 82-year-old white female with a significant past medical history for COPD, digestive heart failure and depression. The patient was in her usual state of health approximately 5 days prior to admission she noticed significant neuritis on her upper extremities and back. Patient stated that she had the same issue on her lower extremities while she was in [place]. The patient recently returned back to [place] from [place] where she was seen by a metal bonding assembler. The metal bonding assembler told her that she had sand flea bites. She was evaluated in her primary care office 3 days prior to admission when she was given a course of steroids. She was then seen 1 day prior to admission in the emergency department and was started on permethrin for possible scabies. Patient's pruritus did not improve and she return to the emergency department. The patient was admitted for workup of pruritus and permethrin therapy. Unclear etiology unlikely to be infectious in origin. Would recommend dermatology evaluation Suggestion: 1. Follow off antibiotics 2. Dermatology evaluation Consult Acknowledgment - Thank you for your consult request.
[2018-04-05 14:27] VITALS: BP 132/76
[2018-04-05 22:40] VITALS: BP 144/91
[2018-04-06 05:56] VITALS: BP 136/84
--- NOTE | 2018-04-06 07:15 | PN- Housestaff ---
Subjective Follow-up For: Intense pruritus with rash Subjective: Patient seen and examined at bedside. No overnight events. Patient still complains of itching. She denies dysphagia, nausea, vomiting. Review of Systems Constitutional: Reports: no symptoms, see HPI. Objective Last 24 Hrs of Vital Signs/I&O Vital Signs Date Time Temp Pulse Resp B/P B/P Pulse O2 O2 Flow FiO2 Mean Ox Delivery Rate 04/06 1426 97.4 94 22 136/86 90 Room Air 04/06 0839 93 148/80 04/06 0556 97.4 74 20 136/84 95 04/05 2240 97.5 92 20 144/91 93 Room Air Intake & Output 04/06 1600 04/06 0800 04/06 0000 Intake Total 600 200 Output Total 900 50 Balance 600 -700 -50 Intake, Oral 600 200 Output, Urine 900 50 Physical Exam General Appearance: Alert, Oriented X3, Cooperative, No Acute Distress Cardiovascular: Normal S1, Normal S2, No Murmurs Lungs: Clear to Auscultation Abdomen: Soft, No Tenderness, No Hepatospenomegaly Neurological: Normal Speech, Strength at 5/5 X4 Ext, Normal Tone, Sensation Intact Extremities: multiple skin rash with evidence of scratch [place]. Current Medications: Current Medications Sig/Ranulfo Start time Last Medication Dose Route Stop Time Status Admin Acetaminophen 650 MG Q6P PRN 04/04 2015 AC PO Alprazolam 0.25 MG ONCE ONE 04/05 2200 DC 04/05 PO 04/05 Alprazolam 0.25 MG TID 04/04 2100 AC 04/06 PO 04/11 2059 133 Atorvastatin Calcium 20 MG DAILY 04/05 09 AC 04/06 PO 0839 Clopidogrel Bisulfate 75 MG DAILY 04/05 09 AC 04/06 PO 0839 Diphenhydramine HCl 25 MG ONCE ONE 04/06 0130 DC 04/06 IV 04/06 0131 0132 Diphenhydramine HCl 50 MG Q8 04/04 2200 AC 04/06 IV 1333 Diphenhydramine HCl 1 PARKER TID 04/04 2100 AC 04/06 TOP 1333 Enoxaparin Sodium 40 MG DAILY 04/05 1245 AC 04/06 SC 0839 Escitalopram Oxalate 10 MG DAILY 04/05 900 AC 04/06 PO 0839 Famotidine 20 MG DAILY 04/07 0900 AC PO Famotidine 20 MG BID 04/06 1313 DC PO Hydroxyzine HCl 25 MG TID 04/04 2100 AC 04/06 PO 1332 Losartan Potassium 50 MG DAILY 04/05 0900 AC 04/06 PO 0839 Melatonin 5 MG AT BEDTIME 04/06 0130 AC 04/06 PO 0128 Melatonin 3 MG AT BEDTIME 04/05 0030 AC 04/05 PO 2018 Montelukast Sodium 10 MG DAILY 04/05 0900 AC 04/06 PO 0839 Omeprazole 40 MG DAILY AC 04/05 0700 DC 04/06 PO 0524 Permethrin 1 PARKER 04/04 AC 04/05 TOP 04/10 2001 170 Prednisone 10 MG DAILY 04/08 09 AC PO 04/10 09 Prednisone 20 MG DAILY 04/05 0900 AC 04/06 PO 04/07 0901 0839 Tramadol HCl 50 MG DAILY PRN 04/04 2030 AC 04/05 PO 2226 Trazodone HCl 50 MG AT BEDTIME 04/04 2100 AC 04/05 PO 2018 Last 24 Hrs of Lab/Magdy Results Last 24 Hrs of Labs/Mics: Laboratory Tests 04/06/18 0626: CBC w Diff NO MAN DIFF REQ, RBC 4.73, MCV 84.7, MCH 27.8, MCHC 32.8 L, RDW 15.2 H, MPV 8.8, Gran % 70.2, Lymphocytes % 17.4 L, Monocytes % 8.8, Eosinophils % 3.5, Basophils % 0.1, Absolute Granulocytes 8.8 H, Absolute Lymphocytes 2.2, Absolute Monocytes 1.1 H, Absolute Eosinophils 0.4, Absolute Basophils 0 Assessment/Plan Assessment: 82 -year-old woman with past medical history of CVA, hypertension, hyperlipidemia, fibromyalgia, and depression came to [place] [facility] with complaints of pruritus. Patient being admitted in [facility] for further evaluation and management. Assessment and plan 1. Intense pruritus 2. Rule out scabies * Contacted precaution. Continue permethrin cream to be applied every night for 8 hours followed by shower. Family members need to be treated. Seen by ID who thinks that this is unlikely scabies but would like to get old records from her line decorator or sent pictures to her.We will get records tomorrow. Discussed with Dr. Zhang line decorator over the phone who requested to send pictures after getting consent from the patient. Pictures were taken and sent to his phone. Dr. Zhang looked at the pictures and suggested that this rash is nonspecific he is requesting skin biopsy and follow with him as outpatient. He wants to start her on topical steroids and antihistamine for now. * All her medications was reconciled. * Pruritus-hydroxyzine 25 mg 3 times a day, Benadryl 50 mg IV every 8 when necessary, steroids. * Patient denies history of food/detergents/new medication use other than Xanax. * Patient was on Lyrica for fibromyalgia. Was on 50 mg which the patient herself increased to 300 mg since November 2017. She then eventually stopped using Lyrica for 2 weeks in February. Lyrica also sometimes causes pruritus. Diet- heart healthy diet DVT prophylaxis-alps Lovenox Problem List: 1. Pruritus 2. Rash and nonspecific skin eruption Pain Ratin Pain Location: none Pain Goal: Remain pain free Pain Plan: tylenol Tomorrow's Labs & Rationales: cbc
[2018-04-06 08:27] LABS: ABSOLUTE BASOPHIL COUNT 0 /CUMM (0.0-0.2); ABSOLUTE EOSINOPHIL COUNT 0.4 /CUMM (0.0-0.7); ABSOLUTE GRANULOCYTE CT 8.8 /CUMM (1.4-6.5); ABSOLUTE LYMPH COUNT 2.2 /CUMM (1.2-3.4); ABSOLUTE MONOCYTE COUNT 1.1 /CUMM (0.10-0.60); BASOPHIL % 0.1 % (0.0-2.0); EOSINOPHIL % 3.5 % (0-5); GRANULOCYTE % 70.2 % (42.2-75.2); MEAN CORPUSCULAR HGB 27.8 PG (27.0-31.0); MEAN CORPUSCULAR HGB CONC 32.8 G/DL (33.0-37.0); MEAN CORPUSCULAR VOLUME 84.7 FL (81.0-99.0); MEAN PLATELET VOLUME 8.8 FL (7.4-10.4); PLATELET COUNT 436 /CUMM (130-400); RBC DISTRIBUTION WIDTH 15.2 % (11.5-14.5); RED BLOOD CELL CT 4.73 /CUMM (4.20-5.40); WHITE BLOOD CELL COUNT 12.5 /CUMM (4.8-10.8)
--- NOTE | 2018-04-06 13:32 | PN- Att Addend ---
Attending Addendum Attending Brief Note Patient seen and examined, was still having significant amount of itching this morning. Patient's RN mentioned that she has applied topical Benadryl all over. Patient has a rash at multiple areas on her body. Vital Signs Date Time Temp Pulse Resp B/P B/P Pulse O2 O2 Flow FiO2 Mean Ox Delivery Rate 04/06 0839 93 148/80 04/06 0556 97.4 74 20 136/84 95 04/05 2240 97.5 92 20 144/91 93 Room Air 04/05 1427 98.4 82 20 132/76 95 Room Air on exam; aox3, nad. cv; s1,s2, rrr resp; clear abd; soft, nt, bs+ ext; no edema skin; maculopapular rash at multiple areas on the body as well as multiple scratch mad[place] from itching. Laboratory Tests 04/06 0626 Hematology CBC w Diff NO MAN DIFF REQ WBC (4.8 - 10.8 /CUMM) 12.5 H RBC (4.20 - 5.40 /CUMM) 4.73 Hgb (12.0 - 16.0 G/DL) 13.1 Hct (37 - 47 %) 40.0 MCV (81.0 - 99.0 FL) 84.7 MCH (27.0 - 31.0 PG) 27.8 MCHC (33.0 - 37.0 G/DL) 32.8 L RDW (11.5 - 14.5 %) 15.2 H Plt Count (130 - 400 /CUMM) 436 H MPV (7.4 - 10.4 FL) 8.8 Gran % (42.2 - 75.2 %) 70.2 Lymphocytes % (20.5 - 51.1 %) 17.4 L Monocytes % (1.7 - 9.3 %) 8.8 Eosinophils % (0 - 5 %) 3.5 Basophils % (0.0 - 2.0 %) 0.1 Absolute Granulocytes (1.4 - 6.5 /CUMM) 8.8 H Absolute Lymphocytes (1.2 - 3.4 /CUMM) 2.2 Absolute Monocytes (0.10 - 0.60 /CUMM) 1.1 H Absolute Eosinophils (0.0 - 0.7 /CUMM) 0.4 Absolute Basophils (0.0 - 0.2 /CUMM) 0 A/P; 82 y/o F with pmh sig for TIA, COPD, HYPertension, diastolic congestive heart failure, hyperlipidemia, anxiety, fibromyalgia, and depression admitted with intractable pruritus and rash. Patient has been started on oral prednisone , H1 and H2 blockers. We called dermatology and sent them pictures. They recommended to start the patient on heavy doses of topical steroids. Dr. Spicer also recommended skin biopsy. We'll call surgery for the skin biopsy. We'll continue current treatments for now. Appreciate infectious disease input. Will follow their further recommendations. Continue the rest of the management and patient on Lovenox for DVT px.
[2018-04-06 14:26] VITALS: BP 136/86
--- NOTE | 2018-04-06 15:21 | PN- Infect Dx ---
Subjective Subjective: Afebrile on steroids. She complains of generalized pruritus. Objective Last 24 Hrs of Vital Signs/I&O Vital Signs Date Time Temp Pulse Resp B/P B/P Pulse O2 O2 Flow FiO2 Mean Ox Delivery Rate 04/06 1426 97.4 94 22 136/86 90 Room Air 04/06 0839 93 148/80 04/06 0556 97.4 74 20 136/84 95 04/05 2240 97.5 92 20 144/91 93 Room Air Intake & Output 04/06 1600 04/06 0800 04/06 0000 Intake Total 600 200 Output Total 900 50 Balance 600 -700 -50 Intake, Oral 600 200 Output, Urine 900 50 Physical Exam Other Physical Findings: She appears mildly uncomfortable but in no acute distress Skin scattered maculopapular lesions, with diffuse excoriations Results Last 24 Hours of Lab Results: Laboratory Tests 04/06 0626 Hematology CBC w Diff NO MAN DIFF REQ WBC (4.8 - 10.8 /CUMM) 12.5 H RBC (4.20 - 5.40 /CUMM) 4.73 Hgb (12.0 - 16.0 G/DL) 13.1 Hct (37 - 47 %) 40.0 MCV (81.0 - 99.0 FL) 84.7 MCH (27.0 - 31.0 PG) 27.8 MCHC (33.0 - 37.0 G/DL) 32.8 L RDW (11.5 - 14.5 %) 15.2 H Plt Count (130 - 400 /CUMM) 436 H MPV (7.4 - 10.4 FL) 8.8 Gran % (42.2 - 75.2 %) 70.2 Lymphocytes % (20.5 - 51.1 %) 17.4 L Monocytes % (1.7 - 9.3 %) 8.8 Eosinophils % (0 - 5 %) 3.5 Basophils % (0.0 - 2.0 %) 0.1 Absolute Granulocytes (1.4 - 6.5 /CUMM) 8.8 H Absolute Lymphocytes (1.2 - 3.4 /CUMM) 2.2 Absolute Monocytes (0.10 - 0.60 /CUMM) 1.1 H Absolute Eosinophils (0.0 - 0.7 /CUMM) 0.4 Absolute Basophils (0.0 - 0.2 /CUMM) 0 Last 24 Hours of Magdy Results: No cultures Assessment/Plan ID Impression: Generalized pruritus of unclear etiology, with an infectious etiology appearing unlikely. She remains afebrile off antibiotics and on systemic steroids, which were begun as an outpatient and which likely explain her mild leukocytosis. Dermatology input has apparently been obtained over the phone, with the recommendation for topical steroids and a skin biopsy. Suggestion: 1. Follow the recommendations of Dermatology 2. Continue to follow off antibiotics
--- NOTE | 2018-04-06 15:46 | Procedure ---
Minor Surgical Procedure Note Date of Procedure: 04/06/18 Procedure Note: Pre procedure diagnosis: Unidentified rash Brief History: 82yo female presents with a rash covering most of her body including all extremities, back and chest. Small 2-10mm red lesions with excoriations, no drainage Sign Builder Supervisor: Antoni Garcia PA-C for Dr. Anglin Procedure: Punch biopsy of right upper arm The procedure was explained to the patient and her including risks of infection and bleeding. Consent was obtained. Patients arm was evaluated and a small lesion on the upper right arm which was not excoriated was selected for biopsy. The area was prepped with betadine and draped with sterile towels. Under sterile conditions, an injection of 3 cc of 1 % lidocaine was given, followed by a punch biopsy using a 2mm punch. The patient tolerated the procedure well. The specimen was placed in formalin and sent to the lab for identification. The area was dressed with gauze and tape.
[2018-04-06 21:06] VITALS: BP 135/70
[2018-04-07 06:21] VITALS: BP 130/84
--- NOTE | 2018-04-07 07:14 | PN- Housestaff ---
Pasquale ZULETA,Kassandra 04/07/18 0714: Subjective Follow-up For: Intense pruritus with rash Subjective: Patient seen and examined at bedside. Patient says she feels terrible and feels that her itching has gotten worse since morning she denies dysphagia, chest pain , shortness of breath. Review of Systems Constitutional: Reports: no symptoms, see HPI. Objective Last 24 Hrs of Vital Signs/I&O Vital Signs Date Time Temp Pulse Resp B/P B/P Pulse O2 O2 Flow FiO2 Mean Ox Delivery Rate 04/07 0838 9 130/84 04/07 0621 98.0 95 18 130/84 93 Room Air 04/06 2106 97.5 91 18 135/70 98 Room Air 04/06 1426 97.4 94 22 136/86 90 Room Air Intake & Output 04/07 1600 04/07 0800 04/07 0000 Intake Total 50 350 Output Total 300 Balance -250 350 Intake, Oral 50 350 Output, Urine 300 Physical Exam General Appearance: Alert, Oriented X3, Cooperative, No Acute Distress Cardiovascular: Regular Rate, Normal S1, Normal S2, No Murmurs Lungs: Clear to Auscultation Abdomen: Soft, No Tenderness, No Hepatospenomegaly Neurological: Normal Speech, Strength at 5/5 X4 Ext, Normal Tone, Sensation Intact Extremities: has multiple areas of rash with evidence of scratching. There is evidence of increased skin rash in her back. Right arm-evidence ofskin biopsy.no wheels. Current Medications: Current Medications Sig/Ranulfo Start time Last Medication Dose Route Stop Time Status Admin Acetaminophen 650 MG Q6P PRN 04/04 2015 AC PO Alprazolam 0.25 MG TID 04/04 2100 AC 04/07 PO 04/11 2059 0836 Atorvastatin Calcium 20 MG DAILY 04/05 09 AC 04/07 PO 0838 Clobetasol Propionate 1 PARKER AT BEDTIME 04/07 2100 AC TOP Clopidogrel Bisulfate 75 MG DAILY 04/05 09 AC 04/07 PO 0838 Diphenhydramine HCl 1 PARKER TID PRN 04/06 1821 AC 04/06 TOP 1900 Diphenhydramine HCl 25 MG ONCE ONE 04/06 1645 DC 04/06 IV 04/06 1646 1653 Diphenhydramine HCl 50 MG Q8 04/04 2200 AC 04/07 IV 0518 Diphenhydramine HCl 1 PARKER TID 04/04 2100 DC 04/06 TOP 1333 Enoxaparin Sodium 40 MG DAILY 04/05 1245 AC 04/07 SC 0839 Escitalopram Oxalate 10 MG DAILY 04/05 0900 AC 04/07 PO 0838 Famotidine 20 MG DAILY 04/07 0900 AC 04/07 PO 0838 Famotidine 20 MG BID 04/06 1313 DC PO Hydroxyzine HCl 25 MG TID 04/04 2100 AC 04/07 PO 0737 Lidocaine 20 ML .STK-MED ONE 04/06 1518 DC IA 04/06 1519 Losartan Potassium 50 MG DAILY 04/05 0900 AC 04/07 PO 0838 Melatonin 5 MG AT BEDTIME 04/06 0130 AC 04/06 PO 205 Melatonin 3 MG AT BEDTIME 04/05 0030 AC 04/05 PO 2018 Montelukast Sodium 10 MG DAILY 04/05 0900 AC 04/07 PO 0838 Omeprazole 40 MG DAILY AC 04/05 0700 DC 04/06 PO 0524 Permethrin 1 PARKER 04/04 AC 04/06 TOP 04/10 2001 194 Prednisone 10 MG DAILY 04/08 0900 AC PO 04/10 0901 Prednisone 20 MG DAILY 04/05 0900 DC 04/07 PO 04/07 0901 0838 Tramadol HCl 50 MG DAILY PRN 04/04 2030 AC 04/05 PO 2226 Trazodone HCl 50 MG AT BEDTIME 04/04 2100 AC 04/06 PO 2054 Triamcinolone 1 PARKER TID 04/07 0900 AC 04/07 Acetonide TOP 0839 Last 24 Hrs of Lab/Magdy Results Last 24 Hrs of Labs/Mics: Laboratory Tests 04/07/18 0600: CBC w Diff NO MAN DIFF REQ, RBC 4.76, MCV 85.1, MCH 28.8, MCHC 33.8, RDW 15.2 H , MPV 8.9, Gran % 66.6, Lymphocytes % 19.5 L, Monocytes % 8.4, Eosinophils % 5.2 H, Basophils % 0.3, Absolute Granulocytes 9.8 H, Absolute Lymphocytes 2.9, Absolute Monocytes 1.2 H, Absolute Eosinophils 0.8, Absolute Basophils 0 Assessment/Plan Assessment: 82 -year-old woman with past medical history of CVA, hypertension, hyperlipidemia, fibromyalgia, and depression came to [place] ER with complaints of pruritus. Patient being admitted in [facility] for further evaluation and management. Assessment and plan 1. Intense pruritus 2. Rule out scabies * Contact precaution. Continue permethrin cream to be applied every night for 8 hours followed by shower. Family members need to be treated. Seen by ID who thinks that this is unlikely scabies but would like to get old records from her soa integration architect or sent pictures to her.We will get records tomorrow. Discussed with Dr. Spicer soa integration architect over the phone who requested to send pictures after getting consent from the patient. Pictures were taken and sent to his phone. Dr. Spicer looked at the pictures and suggested that this rash is nonspecific he is requesting skin biopsy and follow with him as outpatient. He wants to start her on topical steroids and antihistamine for now. Patient started on triamcinolone and clobetasol. We will call dermatology again today and updated about the patient's current condition. * All her medications was reconciled. * Pruritus-hydroxyzine 25 mg 3 times a day, Benadryl 50 mg IV every 8 when necessary, steroids. * Patient denies history of food/detergents/new medication use other than Xanax. * Patient was on Lyrica for fibromyalgia. Was on 50 mg which the patient herself increased to 300 mg since November 2017. She then eventually stopped using Lyrica for 2 weeks in February. Lyrica also sometimes causes pruritus. Diet- heart healthy diet DVT prophylaxis-alps Lovenox Problem List: 1. Pruritus Pain Ratin Pain Location: none Pain Goal: Remain pain free Pain Plan: tylenol Tomorrow's Labs & Rationales: caleb Douglas MD,Shae 04/07/18 1335: Attending MD Review Statement Attending Statement Attending MD Statement: examined this patient, discuss w/resident/PA/TOP LIFT CUTTER, agreed w/resident/PA/TOP LIFT CUTTER, reviewed EMR data (avail), discussed with nursing, discussed with case mgmt, reviewed images, amended to note Attending Assessment/Plan: Patient seen and examined, [place] slightly better after appplication of all the steroid creams as recommended by Derm. Vital Signs Date Time Temp Pulse Resp B/P B/P Pulse O2 O2 Flow FiO2 Mean Ox Delivery Rate 04/07 0838 9 130/84 04/07 0621 98.0 95 18 130/84 93 Room Air 04/06 2106 97.5 91 18 135/70 98 Room Air 04/06 1426 97.4 94 22 136/86 90 Room Air on exam; aox3, nad. cv; s1, s2, rrr resp; clear abd; soft, nt, bs+ ext; no edema skin: + non specific maculopapular rash. Laboratory Tests 04/07 0600 Hematology CBC w Diff NO MAN DIFF REQ WBC (4.8 - 10.8 /CUMM) 14.6 H RBC (4.20 - 5.40 /CUMM) 4.76 Hgb (12.0 - 16.0 G/DL) 13.7 Hct (37 - 47 %) 40.5 MCV (81.0 - 99.0 FL) 85.1 MCH (27.0 - 31.0 PG) 28.8 MCHC (33.0 - 37.0 G/DL) 33.8 RDW (11.5 - 14.5 %) 15.2 H Plt Count (130 - 400 /CUMM) 470 H MPV (7.4 - 10.4 FL) 8.9 Gran % (42.2 - 75.2 %) 66.6 Lymphocytes % (20.5 - 51.1 %) 19.5 L Monocytes % (1.7 - 9.3 %) 8.4 Eosinophils % (0 - 5 %) 5.2 H Basophils % (0.0 - 2.0 %) 0.3 Absolute Granulocytes (1.4 - 6.5 /CUMM) 9.8 H Absolute Lymphocytes (1.2 - 3.4 /CUMM) 2.9 Absolute Monocytes (0.10 - 0.60 /CUMM) 1.2 H Absolute Eosinophils (0.0 - 0.7 /CUMM) 0.8 Absolute Basophils (0.0 - 0.2 /CUMM) 0 A/P: 82 y/o F with pmh sig for TIA, COPD, HYPertension, diastolic congestive heart failure, hyperlipidemia, anxiety, fibromyalgia, and depression admitted with intractable pruritus and rash. Patient has been started on oral prednisone , H1 and H2 blockers. We obtained dermatology recommendations over the form from Dr. Spicer yesterday. As well as accommodations patient has been started on extensive topical steroids. We have kept her on oral prednisone, H1 and H2 blockers. Her itching seems to be slightly better this morning. Skin biopsy was obtained yesterday by surgical PA. We'll follow-up on the biopsy results. In the meantime will continue the current management and if patient's symptoms continue to improve tomorrow then likely she can be discharged home tomorrow. Patient on Lovenox for DVT prophylaxis.
[2018-04-07 08:08] LABS: ABSOLUTE BASOPHIL COUNT 0 /CUMM (0.0-0.2); ABSOLUTE EOSINOPHIL COUNT 0.8 /CUMM (0.0-0.7); ABSOLUTE GRANULOCYTE CT 9.8 /CUMM (1.4-6.5); ABSOLUTE LYMPH COUNT 2.9 /CUMM (1.2-3.4); ABSOLUTE MONOCYTE COUNT 1.2 /CUMM (0.10-0.60); BASOPHIL % 0.3 % (0.0-2.0); EOSINOPHIL % 5.2 % (0-5); GRANULOCYTE % 66.6 % (42.2-75.2); HEMATOCRIT 40.5 % (37-47); MEAN CORPUSCULAR HGB 28.8 PG (27.0-31.0); MEAN CORPUSCULAR HGB CONC 33.8 G/DL (33.0-37.0); MEAN CORPUSCULAR VOLUME 85.1 FL (81.0-99.0); MEAN PLATELET VOLUME 8.9 FL (7.4-10.4); PLATELET COUNT 470 /CUMM (130-400); RBC DISTRIBUTION WIDTH 15.2 % (11.5-14.5); RED BLOOD CELL CT 4.76 /CUMM (4.20-5.40); WHITE BLOOD CELL COUNT 14.6 /CUMM (4.8-10.8)
[2018-04-07 14:44] VITALS: BP 144/80
[2018-04-07 20:26] VITALS: BP 140/70
[2018-04-08 06:40] VITALS: BP 150/88
--- NOTE | 2018-04-08 07:41 | PN- Housestaff ---
Subjective Follow-up For: Intense pruritus with rash Subjective: Patient seen and examined at bedside patient says she still feels terrible and continues having itching all over her body. She denies dysphagia, chest pain, shortness of breath. Review of Systems Constitutional: Reports: no symptoms, see HPI. Objective Last 24 Hrs of Vital Signs/I&O Vital Signs Date Time Temp Pulse Resp B/P B/P Pulse O2 O2 Flow FiO2 Mean Ox Delivery Rate 04/08 0809 150/88 04/08 0640 97.6 92 20 150/88 93 Room Air 04/07 2026 97.6 94 18 140/70 93 Room Air 04/07 1444 97.4 92 20 144/80 93 Room Air Intake & Output 04/08 1600 04/08 0800 04/08 0000 Intake Total 950 Output Total Balance 950 Intake, Oral 950 Number 0 Bowel Movements Physical Exam General Appearance: Alert, Oriented X3, Cooperative, No Acute Distress Cardiovascular: Regular Rate, Normal S1, Normal S2, No Murmurs Lungs: Clear to Auscultation, Normal Air Movement Abdomen: Soft, No Tenderness, No Hepatospenomegaly Neurological: Strength at 5/5 X4 Ext, Normal Tone, Sensation Intact Extremities: multiple areas of scratching and evidence of rash Current Medications: Current Medications Sig/Ranulfo Start time Last Medication Dose Route Stop Time Status Admin Acetaminophen 650 MG Q6P PRN 04/04 2015 AC PO Alprazolam 0.5 MG ONCE ONE 04/07 230 DC 04/07 PO 04/07 2301 2308 Alprazolam 0.25 MG TID 04/04 2100 AC 04/08 PO 04/11 2059 1409 Atorvastatin Calcium 20 MG DAILY 04/05 0900 04/08 PO 0809 Camphor/Menthol 1 PARKER FOUR TIMES A DAY 04/07 1830 AC 04/08 TOP 1411 Clobetasol Propionate 1 PARKER AT BEDTIME 04/07 2100 04/07 TOP 2141 Clopidogrel Bisulfate 75 MG DAILY 04/05 0900 04/08 PO 0809 Dexamethasone 4 MG ONCE ONE 04/08 1130 DC 04/08 IV 04/08 1131 1409 Diphenhydramine HCl 25 MG ONCE ONE 04/08 1015 DC 04/08 IV 04/08 1016 1043 Diphenhydramine HCl 25 MG ONCE ONE 04/07 2300 DC 05/15 IV 04/07 2301 2308 Diphenhydramine HCl 1 PARKER TID PRN 04/06 1821 AC 04/08 TOP 0810 Diphenhydramine HCl 50 MG Q8 04/04 2200 AC 04/08 IV 0641 Enoxaparin Sodium 40 MG DAILY 04/05 1245 AC 04/08 SC 0809 Escitalopram Oxalate 10 MG DAILY 04/05 0900 AC 04/08 PO 0809 Famotidine 20 MG DAILY 04/07 0900 AC 04/08 PO 0809 Hydroxyzine HCl 25 MG TID 04/04 2100 AC 04/08 PO 1409 Loratadine 10 MG ONCE ONE 04/08 1100 DC 04/08 PO 04/08 1101 1409 Losartan Potassium 50 MG DAILY 04/05 0900 AC 04/08 PO 0809 Melatonin 5 MG AT BEDTIME 04/06 0130 AC 04/07 PO 2033 Melatonin 3 MG AT BEDTIME 04/05 0030 DC 04/07 PO 2310 Montelukast Sodium 10 MG DAILY 04/05 0900 AC 04/08 PO 0809 Non-Formulary 0 SEE ADMIN CRITERIA 04/07 1600 CAN Medication ANY Permethrin 1 PARKER 04/04 AC 04/07 TOP 04/10 2001 214 Prednisone 10 MG DAILY 04/08 0900 AC 04/08 PO 04/10 0901 0809 Tramadol HCl 50 MG DAILY PRN 04/04 2030 AC 04/05 PO 2226 Trazodone HCl 50 MG AT BEDTIME 04/04 2100 AC 04/07 PO 2033 Triamcinolone 1 PARKER TID 04/07 0900 AC 04/08 Acetonide TOP 1410 Last 24 Hrs of Lab/Magdy Results Last 24 Hrs of Labs/Mics: Laboratory Tests 04/08/18 0730: CBC w Diff NO MAN DIFF REQ, RBC 5.01, MCV 85.3, MCH 28.3, MCHC 33.2, RDW 15.7 H , MPV 9.0, Gran % 64.3, Lymphocytes % 21.6, Monocytes % 7.3, Eosinophils % 6.5 H, Basophils % 0.3, Absolute Granulocytes 9.6 H, Absolute Lymphocytes 3.2, Absolute Monocytes 1.1 H, Absolute Eosinophils 1.0, Absolute Basophils 0 Assessment/Plan Assessment: 82 -year-old woman with past medical history of CVA, hypertension, hyperlipidemia, fibromyalgia, and depression came to [place] [facility] with complaints of pruritus. Patient being admitted in [facility] for further evaluation and management. Assessment and plan 1. Intense pruritus 2. Rule out scabies * Contact precaution. Continue permethrin cream to be applied every night for 8 hours followed by shower. Family members need to be treated. Seen by ID who thinks that this is unlikely scabies but would like to get old records from her production expert or sent pictures to her.We will get records tomorrow. Discussed with Dr. Spicer production expert over the phone who requested to send pictures after getting consent from the patient. Pictures were taken and sent to his phone [address] Spicer looked at the pictures and suggested that this rash is nonspecific he is requesting skin biopsy and follow with him as outpatient. Patient was also started on triamcinolone, clobetasol oral prednisone, Zyretec. Awaiting biopsy report. * All her medications was reconciled. * Patient denies history of food/detergents/new medication use other than Xanax. * Patient was on Lyrica for fibromyalgia. Was on 50 mg which the patient herself increased to 300 mg since November 2017. She then eventually stopped using Lyrica for 2 weeks in February. Lyrica also sometimes causes pruritus. Diet- heart healthy diet DVT prophylaxis-alps Lovenox. We will also give her one dose of IV Decadron 4 mg to help with the pruritus. Patient will be discharged tomorrow with follow-up with Dr. Spicer. She has an appointment with Dr. Spicer tomorrow at 1045. Problem List: 1. Pruritus Pain Ratin Pain Location: none Pain Goal: Remain pain free Pain Plan: tylenol Tomorrow's Labs & Rationales: cbc
--- NOTE | 2018-04-08 07:54 | Patient Discharge Instructions ---
Discharge Instructions General Discharge Information You were seen/treated for: Nonspecific pruritus Watch for these problems: In case of intense itching, dysphagia, weakness, shortness of breath, chest pain please go to the nearest emergency room Special Instructions: These follow-up with your primary care provider and professor of sport management within 1-2 weeks of discharge please follow-up with your biopsy result with your primary care physician.. Diet Continue normal diet: Yes Activity Full Activity/No Limits: No Activity Self Limited: Yes Acute Coronary Syndrome Inclusion Criteria At DC or during hospital stay patient has or had the following: ACS DIAGNOSIS No Discharge Core Measures Meds if any: Prescribed or Continued at Discharge Meds if any: NOT Prescribed or Continued at Discharge Congestive Heart Failure Inclusion Criteria At DC or during hospital stay patient has or had the following: CHF DIAGNOSIS No Discharge Core Measures Meds if any: Prescribed or Continued at Discharge Meds if any: NOT Prescribed or Continued at Discharge Cerebrovascular accident Inclusion Criteria At DC or during hospital stay patient has or had the following: CVA/TIA Diagnosis No Discharge Core Measures Meds if any: Prescribed or Continued at Discharge Meds if any: NOT Prescribed or Continued at Discharge Venous thromboembolism Inclusion Criteria VTE Diagnosis No VTE Type NONE VTE Confirmed by (Test) NONE Discharge Core Measures - Per Current guidelines, there needs to be overlap - treatment for the first 5 days of Warfarin therapy. - If discharged on Warfarin prior to 5 days of - overlap therapy, the patient will need to be - assessed for post discharge needs including - *Post discharge parental anticoagulation - *Warfarin and/or parental anticoagulation education - *Follow up date to check INR post discharge At least 5 days overlap therapy as Inpatient No Meds if any: Prescribed or Continued at Discharge Note: Overlap Therapy is Warfarin and Anticoagulant Meds if any: NOT Prescribed or Continued at Discharge
[2018-04-08] MEDS ORDERED: ITCH RELIEF CRE28 GM TOP (07:57)
[2018-04-08] MEDS ORDERED: TRIAMCINOLONE A15 G1 TOP (07:57)
[2018-04-08] MEDS ORDERED: TEMOVATE15 GM TOP (07:57)
[2018-04-08 08:55] LABS: ABSOLUTE BASOPHIL COUNT 0 /CUMM (0.0-0.2); ABSOLUTE GRANULOCYTE CT 9.6 /CUMM (1.4-6.5); ABSOLUTE LYMPH COUNT 3.2 /CUMM (1.2-3.4); ABSOLUTE MONOCYTE COUNT 1.1 /CUMM (0.10-0.60); BASOPHIL % 0.3 % (0.0-2.0); EOSINOPHIL % 6.5 % (0-5); GRANULOCYTE % 64.3 % (42.2-75.2); HEMATOCRIT 42.7 % (37-47); MEAN CORPUSCULAR HGB 28.3 PG (27.0-31.0); MEAN CORPUSCULAR HGB CONC 33.2 G/DL (33.0-37.0); MEAN CORPUSCULAR VOLUME 85.3 FL (81.0-99.0); PLATELET COUNT 474 /CUMM (130-400); RBC DISTRIBUTION WIDTH 15.7 % (11.5-14.5); RED BLOOD CELL CT 5.01 /CUMM (4.20-5.40); WHITE BLOOD CELL COUNT 14.9 /CUMM (4.8-10.8)
[2018-04-08] MEDS ORDERED: PREDNISONE10 M2 PO (10:16)
--- NOTE | 2018-04-08 10:36 | PN- Infect Dx ---
Subjective Subjective: Afebrile on steroids. She continues to complain of diffuse severe pruritus, with no relief from her current treatment. Objective Last 24 Hrs of Vital Signs/I&O Vital Signs Date Time Temp Pulse Resp B/P B/P Pulse O2 O2 Flow FiO2 Mean Ox Delivery Rate 04/08 0809 150/88 04/08 0640 97.6 92 20 150/88 93 Room Air 04/07 2026 97.6 94 18 140/70 93 Room Air 04/07 1444 97.4 92 20 144/80 93 Room Air Intake & Output 04/08 1600 04/08 0800 04/08 0000 Intake Total 950 Output Total Balance 950 Intake, Oral 950 Number 0 Bowel Movements Physical Exam Other Physical Findings: She appears uncomfortable Skin diffuse excoriations, with scattered maculopapular lesions Results Last 24 Hours of Lab Results: Laboratory Tests 04/08 0730 Hematology CBC w Diff NO MAN DIFF REQ WBC (4.8 - 10.8 /CUMM) 14.9 H RBC (4.20 - 5.40 /CUMM) 5.01 Hgb (12.0 - 16.0 G/DL) 14.2 Hct (37 - 47 %) 42.7 MCV (81.0 - 99.0 FL) 85.3 MCH (27.0 - 31.0 PG) 28.3 MCHC (33.0 - 37.0 G/DL) 33.2 RDW (11.5 - 14.5 %) 15.7 H Plt Count (130 - 400 /CUMM) 474 H MPV (7.4 - 10.4 FL) 9.0 Gran % (42.2 - 75.2 %) 64.3 Lymphocytes % (20.5 - 51.1 %) 21.6 Monocytes % (1.7 - 9.3 %) 7.3 Eosinophils % (0 - 5 %) 6.5 H Basophils % (0.0 - 2.0 %) 0.3 Absolute Granulocytes (1.4 - 6.5 /CUMM) 9.6 H Absolute Lymphocytes (1.2 - 3.4 /CUMM) 3.2 Absolute Monocytes (0.10 - 0.60 /CUMM) 1.1 H Absolute Eosinophils (0.0 - 0.7 /CUMM) 1.0 Absolute Basophils (0.0 - 0.2 /CUMM) 0 Last 24 Hours of Magdy Results: No cultures Assessment/Plan ID Impression: Generalized pruritus persists despite topical and systemic steroids and remains of unclear etiology, though an infectious etiology remains unlikely. Her white blood cell count has increased, likely secondary to steroids. Suggestion: 1. Dermatology follow-up 2. Follow-up skin biopsy 3. Continue to follow off antibiotics
[2018-04-08] MEDS ORDERED: ZYRTEC10 M3 PO (10:58)
[2018-04-08] MEDS ORDERED: ACID REDUCER20 MG PO (10:58)
--- NOTE | 2018-04-08 12:19 | PN- Att Addend ---
Attending Addendum Attending Brief Note Patient seen and examined, not feeling well at all. She still itching a lot and seems like that no medication is helping her. Vital Signs Date Time Temp Pulse Resp B/P B/P Pulse O2 O2 Flow FiO2 Mean Ox Delivery Rate 04/08 0809 150/88 04/08 0640 97.6 92 20 150/88 93 Room Air 04/07 2026 97.6 94 18 140/70 93 Room Air 04/07 1444 97.4 92 20 144/80 93 Room Air on exam; aox3, nad. cv; s1,s2, rrr resp; clear abd; soft, nt, bs+ ext; no edema skin: maculopapular rash with multiple excoriation [place]. Laboratory Tests 04/08 0730 Hematology CBC w Diff NO MAN DIFF REQ WBC (4.8 - 10.8 /CUMM) 14.9 H RBC (4.20 - 5.40 /CUMM) 5.01 Hgb (12.0 - 16.0 G/DL) 14.2 Hct (37 - 47 %) 42.7 MCV (81.0 - 99.0 FL) 85.3 MCH (27.0 - 31.0 PG) 28.3 MCHC (33.0 - 37.0 G/DL) 33.2 RDW (11.5 - 14.5 %) 15.7 H Plt Count (130 - 400 /CUMM) 474 H MPV (7.4 - 10.4 FL) 9.0 Gran % (42.2 - 75.2 %) 64.3 Lymphocytes % (20.5 - 51.1 %) 21.6 Monocytes % (1.7 - 9.3 %) 7.3 Eosinophils % (0 - 5 %) 6.5 H Basophils % (0.0 - 2.0 %) 0.3 Absolute Granulocytes (1.4 - 6.5 /CUMM) 9.6 H Absolute Lymphocytes (1.2 - 3.4 /CUMM) 3.2 Absolute Monocytes (0.10 - 0.60 /CUMM) 1.1 H Absolute Eosinophils (0.0 - 0.7 /CUMM) 1.0 Absolute Basophils (0.0 - 0.2 /CUMM) 0 A/P; 82 y/o F with pmh sig for TIA, COPD, HYPertension, diastolic congestive heart failure, hyperlipidemia, anxiety, fibromyalgia, and depression admitted with intractable pruritus and rash. Patient has been started on oral prednisone , H1 and H2 blockers. Patient still very symptomatic. We would give extra dose of prednisone. We have started the patient on Claritin also. Continue Atarax, H2 blockers. Continue the patient on topical steroids as well as topical Benadryl. Patient will be seen by dermatology tomorrow morning in the office. We are still waiting for skin biopsy to come back. At this point we are still trying to control her itching with steroids and other agents. Continue the rest of the medications. DVt px; Lovenox.
[2018-04-08 15:13] VITALS: BP 120/62
--- NOTE | 2018-04-08 16:17 | Discharge Summary ---
Visit Information Visit Dates Admission Date: 04/04/18 Discharge Date: 04/09/18 Hospital Course Course Attending Physician: Shae Douglas MD Primary Care Physician: Chico Massey MD Hospital Course: 82 -year-old woman with past medical history of TIA, COPD, HYPertension, diastolic congestive heart failure, hyperlipidemia, anxiety, fibromyalgia, and depression came to [facility] with complaints of pruritus. Patient was in usual state of health until 4 days ago. Patient just came from [place] a week ago, after 2 days patient developed itching and rash. She went to her primary care physician Dr. Nogueira who gave her clobetasol cream. Patient itching and rash worsened and hence she went to Dr. Nogueira again on Friday who gave her a tapering dose of steroids. Patient symptoms worsened and hence she came to [facility] yesterday who gave permethrin suspecting scabies. Patient says her symptoms didn't improve after one application of permethrin. Patient has similar history of itching in December when she was in [place] and was given steroids by mouth. Patient also was admitted for anxiety in February in [place] for 4 days and was given Xanax. Patient continued having itching. This time patient developed intense rash associated with itching initially started in her buttock, arms and spread all over her body. This is not associated with any fever, chills, nausea, vomiting, chest pain, dysphagia, shortness of breath. Patient uses Premarin cream for vaginal dryness. Patient also has? Cardiac implant for evaluation of her syncope which was placed at [place] few years ago. last interrogated in August 2017. Hospital course Patient was admitted in [facility] and was placed under contact precaution. Permethrin cream was started in view of suspected scabies. Patient was seen by infectious disease doctor the next day had low suspicion for scabies and advised to continue permethrin, steroids. Patient continued having itching throughout her hospital course. Contacted Dr. Spicer over the phone who suggested to send her skin rash pictures. Dr. Spicer reviewed the pictures, and he suggested to keep her on topical steroids, antihistamines, skin biopsy and suggested to follow with him as outpatient. On the day of discharge she had some relief with the topical steroids, by mouth steroids, antihistamines. She had an appointment with Dr. Spicer on the same day and was discharged to follow with him as outpatient. Patient advised to follow-up her biopsy report with her primary care physician/medical accountant. Imaging Chest x-ray February 03 No acute cardiopulmonary disease demonstrated. Allergies: Coded Allergies: Penicillins (RASH 07/28/16) adhesive (ITCHY AND RASH 07/28/16) cephalexin (From KEFLEX) (RASH AND NAUSEA 07/28/16) doxycycline (RASH AND NAUSEA 07/28/16) erythromycin base (RASH AND NAUSEA 07/28/16) nitrofurantoin (RASH 07/28/16) Disposition Summary Disposition Principal Diagnosis: Nonspecific skin rash with intense pruritus Additional Diagnosis: None Discharge Disposition: home or self care Discharge Instructions General Discharge Information Code Status: Full Code Patient's Diet: Regular diet Patient's Activity: As tolerated Follow-Up Instructions/Appts: Please follow-up with the primary care provider/medical accountant within 1-2 weeks of discharge. Medications at Discharge Discharge Medications: Stop taking the following medications: Prednisone (Prednisone) 10 MG TABLET ORAL DAILY Qty = 2 Continue taking these medications: Esomeprazole (Nexium) 40 MG CAPSULE.DR 1 Capsule ORAL DAILY Comments: NOT GIVEN IN HOSPITAL Clopidogrel Bisulfate (Plavix) 75 MG TABLET 1 Tablet ORAL DAILY Comments: Last Taken: 04/09/18 Time: 0800AM Atorvastatin Calcium (Lipitor) 20 MG TABLET 1 Tablet ORAL DAILY Comments: Last Taken: 04/09/18 Time: 0800AM Escitalopram Oxalate (Escitalopram Oxalate) 10 MG TABLET 1 Tablet ORAL DAILY Comments: Last Taken: 04/09/18 Time: 0800 AM Valsartan (Valsartan) 160 MG TABLET 1 Tablet ORAL DAILY Qty = 90 Comments: COZAAR GIVEN IN HOSPITAL Last Taken: 04/09/18 Time: 0800AM Tramadol HCl (Tramadol HCl) 50 MG TABLET 1 Tablet ORAL DAILY as needed for PAIN Qty = 90 Comments: NOT GIVEN IN HOSPITAL Montelukast Sodium (Montelukast Sodium) 10 MG TABLET 1 Tablet ORAL DAILY Comments: Last Taken: 04/09/18 Time: 0800AM Alprazolam (Alprazolam) 0.25 MG TABLET 1 Tablet ORAL THREE TIMES DAILY Comments: Last Taken: 04/09/18 Time: 0800AM Hydroxyzine Hydrochloride (Atarax) 50 MG TAB 1 Tablet ORAL THREE TIMES DAILY as needed for itching Qty = 30 Comments: Last Taken: 04/09/18 Time: 0800AM Permethrin (Permethrin) 5 % CREAM..G. 1 Application On the skin GIVE ONCE Qty = 60 Instructions: massage into skin from head to soles of feet one time, leave on for 8-14 hours then remove by thorough washing Comments: Last Taken: 04/08/18 Time: 2109PM Trazodone HCl (Trazodone HCl) 50 MG TABLET 1 Tablet ORAL TAKE AT BEDTIME Qty = 30 Comments: Last Taken: 04/08/18 Time: 2109PM Cholecalciferol (Vitamin D3) (Vitamin D) 2,000 UNIT TABLET 1 Tablet ORAL DAILY Comments: NOT GIVEN IN HOSPITAL Cyanocobalamin (Vitamin B-12) 1,000 MCG TABLET 1 Tablet ORAL DAILY Comments: NOT GIVEN IN HOSPITAL Cranberry Fruit (Cranberry) 400 MG TABLET 1 Tablet ORAL DAILY Comments: NOT GIVEN IN HOSPITAL Multiple Vitamin (Multivitamins) 1 EACH TABLET 1 Tablet ORAL DAILY Comments: NOT GIVEN IN HOSPITAL [place]-3 Fatty Acids/Fish Oil (Fish Oil 1,000 MG Softgel) 340 MG-1,000 MG CAPSULE 1 Capsule ORAL DAILY Comments: NOT GIVEN IN HOSPITAL Start taking the following new medications: Diphenhydramine HCl/Zinc Acet (Itch Relief Cream) 2 %-0.1 % CREAM..G. 1 Application On the skin THREE TIMES DAILY as needed for PRURITIS Qty = 1 No Refills Instructions: . Comments: Last Taken: 04/09/18 Time: 0745AM Triamcinolone Acetonide (Triamcinolone Acetonide) 0.1 % CREAM..G. 1 Application On the skin THREE TIMES DAILY Qty = 1 No Refills Instructions: . Comments: Last Taken: 04/09/18 Time: 0800AM Clobetasol Propionate (Temovate) 0.05 % OINT...G. 1 Application On the skin AT BEDTIME Qty = 1 No Refills Instructions: . Comments: Last Taken: 04/08/18 Time: 2109PM Prednisone (Prednisone) 10 MG TABLET 1 Tablet ORAL DAILY Qty = 1 No Refills Instructions: .. Comments: please take 1 tab daily on April 09-April 10 Last Taken: 04/09/18 Time: 0800AM Famotidine (Acid Executive Office Manager) 20 MG TABLET 1 Tablet ORAL DAILY Qty = 30 No Refills Instructions: . Comments: Last Taken: 04/09/18 Time: 0800AM Cetirizine HCl (Zyrtec) 10 MG TABLET 1 Tablet ORAL DAILY Qty = 30 No Refills Instructions: . Comments: NOT GIVEN IN HOSPITAL Copies To: Shilpa ZULETA,Chico Diaz
[2018-04-08 22:23] VITALS: BP 130/84
[2018-04-09 06:38] VITALS: BP 128/78
--- NOTE | 2018-04-09 07:26 | PN- Housestaff ---
Subjective Follow-up For: Intense pruritus with rash Subjective: Patient seen and examined at bedside patient says she continues having itching all over her body. She denies dysphagia, chest pain, shortness of breath. Review of Systems Constitutional: Reports: no symptoms, see HPI. Objective Last 24 Hrs of Vital Signs/I&O Vital Signs Date Time Temp Pulse Resp B/P B/P Pulse O2 O2 Flow FiO2 Mean Ox Delivery Rate 04/09 0801 94 128/78 04/09 0638 98.0 94 20 128/78 93 04/08 2223 98.3 84 20 130/84 93 Room Air Intake & Output 04/09 1600 04/09 0800 04/09 0000 Intake Total 130 120 Output Total Balance 130 120 Intake, IV 10 Intake, Oral 120 120 Physical Exam General Appearance: Alert, Oriented X3 Cardiovascular: Regular Rate, Normal S1, Normal S2 Lungs: Clear to Auscultation Abdomen: Normal Bowel Sounds, Soft, No Tenderness, No Hepatospenomegaly Extremities: evidence of rash and scratch [place]. Current Medications: Current Medications Sig/Ranulfo Start time Last Medication Dose Route Stop Time Status Admin Acetaminophen 650 MG Q6P PRN 04/04 2015 DCD PO Alprazolam 0.25 MG TID 04/04 2100 DCD 04/09 PO 04/11 2059 08 Atorvastatin Calcium 20 MG DAILY 04/05 900 DCD 04/09 PO 0801 Camphor/Menthol 1 PARKER FOUR TIMES A DAY 04/07 1830 DCD 04/08 TOP 2110 Clobetasol Propionate 1 PARKER AT BEDTIME 04/07 2100 DCD 04/08 TOP 2108 Clopidogrel Bisulfate 75 MG DAILY 04/05 09 DCD 04/09 PO 0801 Diphenhydramine HCl 1 PARKER TID PRN 04/06 1821 DCD 04/09 TOP 0744 Diphenhydramine HCl 50 MG Q8 04/04 2200 DCD 04/09 IV 0643 Enoxaparin Sodium 40 MG DAILY 04/05 1245 DCD 04/09 SC 0801 Escitalopram Oxalate 10 MG DAILY 04/05 09 DCD 04/09 PO 0801 Famotidine 20 MG DAILY 04/07 09 DCD 04/09 PO 0801 Hydroxyzine HCl 25 MG TID 04/04 2100 DCD 04/09 PO 0801 Losartan Potassium 50 MG DAILY 04/05 0900 DCD 04/09 PO 0801 Melatonin 5 MG AT BEDTIME 04/06 0130 DCD 04/08 PO 2107 Montelukast Sodium 10 MG DAILY 04/05 0900 DCD 04/09 PO 0801 Permethrin 1 PARKER 04/04 DCD 16 TOP 04/10 2001 2116 Prednisone 10 MG DAILY 04/08 0900 DCD 04/09 PO 04/10 0901 0801 Tramadol HCl 50 MG DAILY PRN 04/04 2030 DCD 04/05 PO 2226 Trazodone HCl 50 MG AT BEDTIME 04/04 2100 DCD 04/08 PO 2107 Triamcinolone 1 PARKER TID 04/07 0900 DCD 04/09 Acetonide TOP 0807 Assessment/Plan Assessment: 82 -year-old woman with past medical history of CVA, hypertension, hyperlipidemia, fibromyalgia, and depression came to [facility] with complaints of pruritus. Patient being admitted in [facility] for further evaluation and management. Assessment and plan 1. Intense pruritus 2. Rule out scabies * Contact precaution. Continue permethrin cream to be applied every night for 8 hours followed by shower. Family members need to be treated. Seen by ID who thinks that this is unlikely scabies but would like to get old records from her title investigator or sent pictures to her.We will get records tomorrow. Discussed with Dr. Spicer title investigator over the phone who requested to send pictures after getting consent from the patient. Pictures were taken and sent to his phone [address] Spicer looked at the pictures and suggested that this rash is nonspecific he is requesting skin biopsy and follow with him as outpatient. Patient was also started on triamcinolone, clobetasol oral prednisone, Zyretec. Biopsies specimen sent to [place]. This was discussed with the pathologist. * All her medications was reconciled. Patient is planned for discharge today and follow-up with Dr. Spicer as outpatient. Patient has appointment with Dr. Spicer at 10:43 AM today. Problem List: 1. Pruritus Pain Ratin Pain Location: none Pain Goal: Remain pain free Pain Plan: tylenol Tomorrow's Labs & Rationales: none
[2018-04-09] MEDS ORDERED: PREDNISONE10 M2 PO ×2 (07:53→07:54)
[2018-04-09] MEDS ORDERED: ACID REDUCER20 MG PO (07:54)
[2018-04-09] MEDS ORDERED: TRIAMCINOLONE A15 G1 TOP (07:54)
[2018-04-09] MEDS ORDERED: ZYRTEC10 M3 PO (07:54)
[2018-04-09] MEDS ORDERED: ITCH RELIEF CRE28 GM TOP (07:54)
[2018-04-09] MEDS ORDERED: TEMOVATE15 GM TOP (07:54)
[2018-04-09 08:01] VITALS: BP 128/78
--- NOTE | 2018-04-09 10:49 | PN- Att Addend ---
Attending Addendum Attending Brief Note Patient seen and examined this morning, she has an appointment scheduled with political anthropologist Dr. Spicer at 1045 this morning. She remains uncomfortable and continues to H. She has received significant amount of steroids both systemic as well as topical. She has received both H1 and H2 blockers. She's also kept on Xanax for anxiety. Her final biopsy results are still pending but I spoke with Dr. Julissa Harris from pathology yesterday who mentioned that the biopsy results here have not shown anything specific therefore it has been send to [facility] for further evaluation. Those biopsy results can be followed by patient's primary care doctor or political anthropologist as an outpatient. Patient will be discharged on topical steroids, H1 any blockers. She should follow-up with Dr. Spicer from political anthropologist today. vss.
== END 2018-04-09 09:45 | DRG 607 ==
LOC: ERH 12:23 → 2NB 17:41 → ERHI 17:41 → ENRESERV 18:02 → ENTRNSPT 19:07 → 2NB 19:08 → EDTRNSPTSTS 19:15 → 2NB 19:22 → CMPTRNSPT 19:37 → 2NB 20:32 → ENPENDDIS 04-09 08:42 → ENTRNSPT 04-09 09:40 → CMPTRNSPT 04-09 09:40 → 2NB 04-09 09:45
PROVIDERS: Physician Assistant; Student in an Organized Health Care Education/Training Program
PROC: 0HBBXZX Excision of Right Upper Arm Skin, External Approach, Diagnostic (ICD-10-PCS; principal; 2018-04-06)
DX: R21 Rash and other nonspecific skin eruption (principal); J44.9 Chronic obstructive pulmonary disease, unspecified; I11.0 Hypertensive heart disease with heart failure; I50.32 Chronic diastolic (congestive) heart failure; E78.5 Hyperlipidemia, unspecified; L29.9 Pruritus, unspecified; F32.9 Major depressive disorder, single episode, unspecified; D72.829 Elevated white blood cell count, unspecified; T38.0X5A Adverse effect of glucocorticoids and synthetic analogues, initial encounter; F41.9 Anxiety disorder, unspecified; M79.7 Fibromyalgia; Z91.048 Other nonmedicinal substance allergy status; Z86.73 Personal history of transient ischemic attack (TIA), and cerebral infarction without residual deficits; Z88.8 Allergy status to other drugs, medicaments and biological substances; Z88.0 Allergy status to penicillin; Z90.49 Acquired absence of other specified parts of digestive tract
CPT/HCPCS: 2NBP; 36415; 36592; 71045; 81003; 82436; 87389; 96374; 96375; 96376; 97110-GO; 97116-GO; 97161-GP; 97530-GO; J1100; J1200; J1650; J2001; J7512

== ENCOUNTER 2018-05-27 16:59 | Inpatient (IN) | payer OTHER ==
[~2018-05-27] VITALS: Ht 162.6 cm; Wt 83.5 kg
[~2018-05-27 16:59] MED LIST changes: +ACID REDUCER20 MG PO; +FISH OIL 1,0001 EAC1 PO; +ITCH RELIEF CRE28 GM TOP; +MULTIVITAMINS1 EAC9 PO; +PREDNISONE10 M2 PO; +TEMOVATE15 GM TOP; +TRAZODONE HCL50 M1 PO; +TRIAMCINOLONE A15 G1 TOP; +VITAMIN B-121000 MC3 PO; +VITAMIN D2000 UNI1 PO; +ZYRTEC10 M3 PO
--- NOTE | 2018-05-27 17:15 | ED DYSPNEA/ASTHMA COMPLAINT ---
History of Present Illness General Chief Complaint: Dyspnea (COPD, CHF, Other) Stated Complaint: SOB/CP/URI Source: patient, family, old records Exam Limitations: no limitations Vital Signs & Intake/Output Vital Signs & Intake/Output Vital Signs Date Time Temp Pulse Resp B/P B/P Pulse O2 O2 Flow FiO2 Mean Ox Delivery Rate 05/27 1719 94 Nasal 2.0L Cannula 05/27 1712 95 Nasal 2.0L Cannula 05/27 1708 103 24 135/73 95 Nasal 2.0L Cannula Allergies Coded Allergies: Penicillins (RASH 07/28/16) adhesive (ITCHY AND RASH 07/28/16) cephalexin (From KEFLEX) (RASH AND NAUSEA 07/28/16) doxycycline (RASH AND NAUSEA 07/28/16) erythromycin base (RASH AND NAUSEA 07/28/16) nitrofurantoin (RASH 07/28/16) Reconcile Medications Alprazolam 0.25 MG TABLET 1 TAB PO TID ANXIETY (Reported) Atorvastatin Calcium (Lipitor) 20 MG TABLET 1 TAB PO DAILY CHOLESTEROL ( Reported) Cetirizine HCl (Zyrtec) 10 MG TABLET 1 TAB PO DAILY itching . Cholecalciferol (Vitamin D3) (Vitamin D) 2,000 UNIT TABLET 1 TAB PO DAILY SUPPLEMENT (Reported) Clobetasol Propionate (Temovate) 0.05 % OINT...G. 1 PARKER TOP AT BEDTIME itching . Clopidogrel Bisulfate (Plavix) 75 MG TABLET 1 TAB PO DAILY BLOOD THINNER ( Reported) Cranberry Fruit (Cranberry) 400 MG TABLET 1 TAB PO DAILY SUPPLEMENT (Reported ) Cyanocobalamin (Vitamin B-12) 1,000 MCG TABLET 1 TAB PO DAILY SUPPLEMENT ( Reported) Diphenhydramine HCl/Zinc Acet (Itch Relief Cream) 2 %-0.1 % CREAM..G. 1 PARKER TOP TID PRN PRURITIS . Escitalopram Oxalate 10 MG TABLET 1 TAB PO DAILY MENTAL HEALTH (Reported) Esomeprazole (Nexium) 40 MG CAPSULE.DR 1 CAP PO DAILY GI (Reported) Famotidine (Acid Choir Leader) 20 MG TABLET 1 TAB PO DAILY gastritis . Hydroxyzine Hydrochloride (Atarax) 50 MG TAB 1 TAB PO TID PRN itching Montelukast Sodium 10 MG TABLET 1 TAB PO DAILY ALLERGIES/RESP (Reported) Multiple Vitamin (Multivitamins) 1 EACH TABLET 1 TAB PO DAILY SUPPLEMENT ( Reported) [place]-3 Fatty Acids/Fish Oil (Fish Oil 1,000 MG Softgel) 340 MG-1,000 MG CAPSULE 1 CAP PO DAILY SUPPLEMENT (Reported) Permethrin 5 % CREAM..G. 1 PARKER TOP ONCE scabies massage into skin from head to soles of feet one time, leave on for 8-14 hours then remove by thorough washing Prednisone 10 MG TABLET 1 TAB PO DAILY itching .. Tramadol HCl 50 MG TABLET 1 TAB PO DAILY PRN PAIN (Reported) Trazodone HCl 50 MG TABLET 1 TAB PO QHS SLEEP (Reported) Triamcinolone Acetonide 0.1 % CREAM..G. 1 PARKER TOP TID itching . 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 WAS SEEN AT URGENT CARE FOR SAME YESTERDAY, "THEY GAVE ME SOMETHING A LITTLE PILL". HX COPD. RA SAT 91%, PLACED ON 2L NC 97%. NON-PRODUCTIVE COUGH. NO SICK CONTACTS. DENIES C/P OR PAIN ON INSPIRATION Triage Nurses Notes Reviewed? yes HPI: Patient % emergency department with a two-day history of a nonproductive cough and increasing dyspnea on exertion. Patient denies any orthopnea. There is no chest pain or chest tightness. Patient states that she was seen at urgent care yesterday and was told everything was okay and sent home. Patient did not have a chest x-ray. Patient is on 30 mg of prednisone daily. Patient states that she has a dry cough. Patient is not normally on oxygen and she states that her normal oxygen level is at or from 90-94%. Past History Travel History Traveled to [place] past 21 day No Medical History Any Pertinent Medical History? 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 No Review of Systems Review of Systems Constitutional: Reports: no symptoms. EENTM: Reports: no symptoms. Respiratory: Reports: see HPI, cough, short of breath, wheezing. Cardiovascular: Reports: no symptoms. GI: Reports: no symptoms. Genitourinary: Reports: no symptoms. Musculoskeletal: Reports: no symptoms. Skin: Reports: no symptoms. Neurological/Psychological: Reports: no symptoms. Hematologic/Endocrine: Reports: no symptoms. Immunologic/Allergic: Reports: no symptoms. All Other Systems: Reviewed and Negative Physical Exam Physical Exam General Appearance: well developed/nourished, alert, awake, anxious, mild distress Head: atraumatic, normal appearance Eyes: Bilateral: PERRL, EOMI. Ears, Nose, Throat: normal pharynx, normal ENT inspection, hearing grossly normal Neck: normal inspection, supple, full range of motion Respiratory: rhonchi, wheezing Cardiovascular: regular rate/rhythm, normal peripheral pulses Gastrointestinal: normal bowel sounds, soft, non-tender, no organomegaly Extremities: normal inspection, normal capillary refill, normal range of motion Neurologic/Psych: no motor/sensory deficits, awake, alert, oriented x 3, normal mood/affect Skin: intact, normal color, warm/dry Lymphatic: no anterior cervical tad Core Measures ACS in differential dx? No CVA/TIA Diagnosis No Sepsis Present: No Sepsis Focused Exam Completed? No Progress Differential Diagnosis: AMI, bronchitis, CHF, COPD, pneumonia, pneumothorax Plan of Care: Orders Procedure Date/time Status Telemetry/Cms Expert 05/27 1713 Active BLOOD CULTURE 05/27 1713 Active URINALYSIS 05/27 1713 Active TROPONIN LEVEL 05/27 1713 Complete COMPREHENSIVE METABOLIC PANEL 05/27 1713 Complete CBC WITHOUT DIFFERENTIAL 05/27 1713 Complete B-TYPE NATRIURETIC PEP (BNP) 05/27 1713 Complete EKG 05/27 1701 Active Current Medications Sig/Ranulfo Start time Last Medication Dose Stop Time Status Admin Clindamycin 300 MG ONCE ONE 05/27 1900 UNir (Cleocin) 05/27 190 Laboratory Tests 05/27/18 1730: Anion Gap 12, Estimated GFR > 60, BUN/Creatinine Ratio 17.8, Glucose 144 H, Calcium 9.1, Total Bilirubin 0.6, AST 30, ALT 31, Alkaline Phosphatase 63, Troponin I < 0.01, Dcj-V-Pqkxcrgmibk Pept 167 H, Total Protein 6.3, Albumin 3.7 , Globulin 2.6, Albumin/Globulin Ratio 1.4, CBC w Diff MAN DIFF ORDERED, RBC 4.51, MCV 84.9, MCH 28.9, MCHC 34.0, RDW 15.5 H, MPV 8.3, Gran % 93.1 H, Lymphocytes % 5.0 L, Monocytes % 1.7, Eosinophils % 0.2, Basophils % 0, Absolute Granulocytes 16.3 H, Segmented Neutrophils 95 H, Band Neutrophils 3, Absolute Lymphocytes 0.9 L, Lymphocytes 2 L, Absolute Monocytes 0.3, Absolute Eosinophils 0, Absolute Basophils 0, Platelet Estimate ADEQUATE, Normochromic RBCs VERIFIED, Anisocytosis 1+, Fld Total RBCs Counted 100 Microbiology 05/27 1759 BLOOD: Blood Culture - RECD 05/27 1730 BLOOD: Blood Culture - RECD Diagnostic Imaging: Viewed by Me: Radiology Read. Discussed w/RAD: Radiology Read. CXR Impression: PATIENT: IRA PERALTA PRESENT AGE : 82 PATIENT ACCOUNT NO: [id number] : 37 LOCATION: [facility] ORDERING PHYSICIAN: Emmett Delgadillo MD SERVICE DATE: 05/27/18 EXAM TYPE: RAD - XRY-PORTABLE CHEST XRAY EXAMINATION: XR PORTABLE CHEST CLINICAL INFORMATION: Cough. COMPARISON: Chest x-ray of 09/12/2017, 07/28/2016. Chest CT of 2015. TECHNIQUE: Portable frontal view of the chest was obtained. FINDINGS: The cardiomediastinal silhouette is stable with [id number] cardiomegaly. The lungs are normally and symmetrically expanded. Evaluation of the left lung base retrocardiac region is somewhat limited however the appearance is similar to that seen on the chest x-ray of 07/28/2016. Remainder of the lungs are clear. No pleural effusions, pulmonary edema or pneumothorax. Mild to moderate osteoarthritic changes are noted at the bilateral glenohumeral joints. There is mild dextroscoliosis of the spine. IMPRESSION: No convincing radiographic evidence of pneumonia. No significant interval change is noted compared to previous chest x-rays. DICTATED BY: Sea Young MD DATE/TIME DICTATED:05/27/181804 REPEATER OPERATOR:ROHIT DATE/TIME TRANSCRIBED:05/27/181804 CONFIDENTIAL, DO NOT COPY WITHOUT APPROPRIATE AUTHORIZATION. <Electronically signed in Other Vendor System> SIGNED BY: Sea Young MD 05/27/18 9533 Initial ED EKG: NSR, no ST T wave changes Prior EKG: unchanged Departure Departure Disposition: STILL A PATIENT Condition: Guarded Clinical Impression Primary Impression: COPD exacerbation Referrals: Shilpa ZULETA,Chico Diaz (PCP/Family) Departure Forms: Customer Survey General Discharge Information Admission Note Spoke With: Eugene Manrique MD Documentation of Exam: Documentation of any treatments & extenuating circumstances including Concerns Regarding Discharge (functional status, medication knowledge or non-compliance, living conditions, etc.) that warrant an admission rather than observation: [IV steroids, IV antibiotics, nebulizers, pulmonary consultation, respiratory treatment] Critical Care Note Critical Care Note Critical Care Time: non-applicable
[2018-05-27 17:43] LABS: ABSOLUTE BASOPHIL COUNT 0 /CUMM (0.0-0.2); ABSOLUTE EOSINOPHIL COUNT 0 /CUMM (0.0-0.7); ABSOLUTE GRANULOCYTE CT 16.3 /CUMM (1.4-6.5); ABSOLUTE LYMPH COUNT 0.9 /CUMM (1.2-3.4); ABSOLUTE MONOCYTE COUNT 0.3 /CUMM (0.10-0.60); BASOPHIL % 0 % (0.0-2.0); EOSINOPHIL % 0.2 % (0-5); GRANULOCYTE % 93.1 % (42.2-75.2); HEMATOCRIT 38.3 % (37-47); MEAN CORPUSCULAR HGB 28.9 PG (27.0-31.0); MEAN CORPUSCULAR VOLUME 84.9 FL (81.0-99.0); MEAN PLATELET VOLUME 8.3 FL (7.4-10.4); PLATELET COUNT 392 /CUMM (130-400); RBC DISTRIBUTION WIDTH 15.5 % (11.5-14.5); RED BLOOD CELL CT 4.51 /CUMM (4.20-5.40); WHITE BLOOD CELL COUNT 17.5 /CUMM (4.8-10.8)
--- NOTE | 2018-05-27 18:43 | RADIOLOGY REPORT ---
EXAMINATION: XR PORTABLE CHEST CLINICAL INFORMATION: Cough. COMPARISON: Chest x-ray of 09/12/2017, 07/28/2016. Chest CT of 12/01/2015. TECHNIQUE: Portable frontal view of the chest was obtained. FINDINGS: The cardiomediastinal silhouette is stable with [id number] cardiomegaly. The lungs are normally and symmetrically expanded. Evaluation of the left lung base retrocardiac region is somewhat limited however the appearance is similar to that seen on the chest x-ray of 07/28/2016. Remainder of the lungs are clear. No pleural effusions, pulmonary edema or pneumothorax. Mild to moderate osteoarthritic changes are noted at the bilateral glenohumeral joints. There is mild dextroscoliosis of the spine. IMPRESSION: No convincing radiographic evidence of pneumonia. No significant interval change is noted compared to previous chest x-rays.
[2018-05-27] MEDS ORDERED: CYMBALTA60 M1 PO (20:03)
[2018-05-27] MEDS ORDERED: NEURONTIN300 M1 PO (20:03)
[2018-05-27] MEDS ORDERED: TESSALON PERLE100 M1 PO (20:04)
[2018-05-27] MEDS ORDERED: VIBRAMYCIN100 MG PO (20:04)
--- NOTE | 2018-05-27 20:46 | History & Physical ---
Samy Dean 05/27/182043: General Information and HPI MD Statement: I have seen and personally examined IRA PERALTA and documented this H&P. The patient is a 82 year old F who presented with a patient stated chief complaint of [COPD exacerbation]. Source of Information: patient Exam Limitations: no limitations History of Present Illness: Patient is an 82-year-old female with a past medical history significant for COPD, and CHF. She has been on a 60 mg prednisone taper that was given to her at [facility] for pruritus diagnosed to be part of an underlying autoimmune illness. She has now tapered down to 30 mg and endorses that her pruritus has significantly improved. Two days ago she developed a non productive cough and increased dyspnea on exertion. She went to an urgent care and was given a medication and sent home without a chest x-ray. She then came to [place] ED to evaluate her cough and dyspnea. Patient endorses that she is not normally on oxygen and that at home she saturates above 90%. Allergies/Medications Allergies: Coded Allergies: Penicillins (RASH 07/28/16) adhesive (ITCHY AND RASH 07/28/16) cephalexin (From KEFLEX) (RASH AND NAUSEA 07/28/16) doxycycline (RASH AND NAUSEA 07/28/16) erythromycin base (RASH AND NAUSEA 07/28/16) nitrofurantoin (RASH 07/28/16) Home Med list Alprazolam 0.25 MG TABLET 1 TAB PO TID ANXIETY (Reported) Atorvastatin Calcium (Lipitor) 20 MG TABLET 1 TAB PO DAILY CHOLESTEROL ( Reported) Benzonatate (Tessalon Perle) 100 MG CAPSULE 1 CAP PO TID COUGH (Reported) Clopidogrel Bisulfate (Plavix) 75 MG TABLET 1 TAB PO DAILY BLOOD THINNER ( Reported) Doxycycline Hyclate (Vibramycin) 100 MG CAPSULE 1 CAP PO BID INFECTION ( Reported) Duloxetine HCl (Cymbalta) 60 MG CAPSULE. 1 CAP PO DAILY MENTAL HEALTH ( Reported) Esomeprazole (Nexium) 40 MG CAPSULE.DR 1 CAP PO DAILY GI (Reported) Gabapentin (Neurontin) 300 MG CAPSULE 1 CAP PO TID NERVES (Reported) Montelukast Sodium 10 MG TABLET 1 TAB PO DAILY ALLERGIES/RESP (Reported) Multiple Vitamin (Multivitamins) 1 EACH TABLET 1 TAB PO DAILY SUPPLEMENT ( Reported) [place]-3 Fatty Acids/Fish Oil (Fish Oil 1,000 MG Softgel) 340 MG-1,000 MG CAPSULE 1 CAP PO DAILY SUPPLEMENT (Reported) Tramadol HCl 50 MG TABLET 1 TAB PO DAILY PRN PAIN (Reported) Trazodone HCl 50 MG TABLET 1 TAB PO QHS SLEEP (Reported) Valsartan 160 MG TABLET 1 TAB PO DAILY BP (Reported) Past History Travel History Traveled to [place] past 21 day No Medical History Blood Transfusion Hx: No Neurological: TIA EENT: NONE Cardiovascular: hypertension, hyperlipidemia Respiratory: COPD, PNEUMOTHORAX S/P CHOLEY 2013 Gastrointestinal: GERD Hepatic: NONE Renal: NONE Musculoskeletal: LEFT ANKLE FUSION Psychiatric: anxiety, insomnia Endocrine: NONE Blood Disorders: NONE 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 spouse Services at Home: None Primary Language: Iranian Smoking Status: Former Smoker ETOH Use: denies use Illicit Drug Use: denies illicit drug use Functional Ability ADLs Independent: dressing, eating, toileting, bathing. Ambulation: walker IADLs Independent: shopping, finances, food prep, telephone, medication admin. Needs Assist: housework, transportation. Review of Systems Review of Systems Constitutional: Denies: chills, diaphoresis, malaise, weakness. EENTM: Denies: blurred vision, nasal congestion, throat pain. Cardiovascular: Denies: chest pain, palpitations, syncope. Respiratory: Reports: cough, orthopnea, short of breath, wheezing. GI: Reports: no symptoms. Genitourinary: Reports: no symptoms. Musculoskeletal: Denies: joint pain, joint swelling. Skin: Reports: erythema. Neurological/Psychological: Reports: anxiety, depressed. Denies: numbness, tingling. Hematologic/Endocrine: Reports: no symptoms. Immunologic/Allergic: Reports: no symptoms. All Other Systems: Reviewed and Negative Exam & Diagnostic Data Last 24 Hrs of Vital Signs/I&O Vital Signs Date Time Temp Pulse Resp B/P B/P Pulse O2 O2 Flow FiO2 Mean Ox Delivery Rate 05/28 0634 97.6 89 20 136/84 96 Nasal 2.0L Cannula 07/05 0000 Nasal 2.0L Cannula 05/27 2155 97.9 98 20 140/80 91 05/27 2030 Nasal 2.0L Cannula 05/27 195 97.9 106 22 142/69 96 Nasal 2.0L Cannula 05/27 1833 98.4 101 20 139/74 96 Nasal 2.0L Cannula 05/27 1719 94 Nasal 2.0L Cannula 05/27 1712 95 Nasal 2.0L Cannula 05/27 1708 103 24 135/73 95 Nasal 2.0L Cannula Intake & Output 05/28 1600 07 0800 07 0000 Intake Total 300 440 Output Total 200 Balance 300 240 Intake, Oral 300 440 Number 1 Bowel Movements Output, Urine 200 Patient 184 lb Weight Weight Reported by Patient Measurement Method Physical Exam General Appearance Alert, Oriented X3, Cooperative, No Acute Distress Skin Pruitis/rash resolving on extremities Skin Temp/Moisture Exam: Warm/Dry HEENT Atraumatic, PERRLA, EOMI Neck Supple Cardiovascular Normal S1, Normal S2 Lungs Crackles B/L, Decreased Breath Sounds B/L Abdomen Normal Bowel Sounds, Soft Neurological Normal Speech Extremities No Clubbing (1+ Edema B/L LE), Normal Pulses Vascular Normal Pulses Assessment/Plan Assessment: Vitals on admission were temperature of 98.4, heart rate remains 3, respiratory rate 24, and O2 sats 95% on 2 L. WBC count of 17.5 with 3 bands, H&H 13/38.3, platelet count 392, sodium 126, potassium 5.1, albumin/creatinine 16/0.9, bicarbonate 20, blood glucose 144, and proBNP 165. Chest x-ray showed no convincing radiographic evidence of pneumonia. Problem list: # Acute hypoxic respiratory failure (patient was tachypneic and hypoxic with labored breathing) - improved in ER with nebulizer treatment and Supplemental O2 # COPD exacerbation - admit patient to general medicine floor - start IV solumedrol 40mg daily - hold prednisone - azithromycin - f/u sputum cx - supplemntal O2 as needed - TRC eval #Chronic Hyponatremia - repeat CBC and BP in the am - consider lung imaging #Chronic medical conditions - continue home meds # House Chores - Alps and subcutaneous lovenox - Patient is full code As Ranked By This Provider Problem List: 1. COPD exacerbation 2. Hyponatremia 3. Hypoxia 4. Hyperlipidemia 5. Depression Core Measures/Misc (08/10) Acute Coronary Syndrome ACS Diagnosis: No Congestive Heart Failure Congestive Heart Failure Diagnosis Yes Cerebrovascular Accident CVA/TIA Diagnosis: No VTE (View Protocol) VTE Risk Factors Age>40 No Mechanical VTE Prophylaxis d/t N/A MechProphylax Ordered No VTE Pharm Prophylaxis d/t NA PharmProphylax ordered Sepsis (View protocol) Sepsis Present: No If YES complete Sepsis Event Note If YES complete Sepsis Event Note Eugene Manrique MD 05/28/18 0145: Core Measures/Misc (08/10) Sepsis (View protocol) If YES complete Sepsis Event Note If YES complete Sepsis Event Note Attending MD Review Statement Attending Statement Attending MD Statement: examined this patient, discuss w/resident/PA/AVIATION OPERATIONS SPECIALIST Attending Assessment/Plan: This patient is an 82-year-old white female with a significant past medical history for COPD, congestive heart failure and depression. The patient states that she was in her usual state of health until approximately 2 days prior to admission when she developed cough and increased dyspnea on exertion. She was evaluated in an urgent care and sent home. The patient was recently admitted to [facility] for unexplained pruritus which may be an underlying autoimmune illness which she is currently receiving 30 mg of prednisone daily. While in the emergency department the patient was noted to have decreased oxygenation and an elevated white blood cell count. She was admitted for acute exacerbation of COPD. Past medical history, social history, and review systems per resident note. Vital signs temperature is 97.9 pulse 98 respirations 20 blood pressure 140/80 satting at 91% on 2 L Awake alert oriented 3 Pupils equal and reactive to light and accommodation Neck supple no JVD no lymphadenopathy Lungs with decreased breath sounds no wheeze heard Heart regular rate and rhythm Abdomen soft nontender nondistended No neurologic dysfunction and moving all extremities Labs demonstrated a white blood cell count is 17.5 with a left shift and on steroids. She is hyponatremic at 126 Cultures pending Chest x-ray:No convincing radiographic evidence of pneumonia. No significant interval change is noted compared to previous chest x-rays. Assessment and plan: This patient is an 82-year-old white female a significant past medical history as documented above. The patient appears to have an acute exacerbation of COPD. Would begin IV steroids 40 mg IV every 8h, and azithromycin. The patient also has underlying hyponatremia which she has had in the past. Would repeat in the a.m. continue outpatient meds except for prednisone. Tommie ZULETA,[place] 05/28/18 0528: Core Measures/Misc (08/10) Sepsis (View protocol) If YES complete Sepsis Event Note If YES complete Sepsis Event Note Resident Review Statement Resident Statement: examined this patient, discussed with rn intern, agreed with rn intern, reviewed EMR data (avail), discussed with nursing Other Findings: Ms Peralta 82 -year-old woman with past medical history of TIA, COPD, pneumothorax, HTN, hyperlipidemia, anxiety, fibromyalgia, insomnia and depression presents to the ER with difficulty breathing and cough for the past 2 days. Currently the patient she has had difficulty breathing for the past 2 days even on rest. Today she noticed that she had more labored breathing and the shortness of breath is getting worse which brought her to the ER. She also reports a dry cough and PND. She went to an urgent care clinic yesterday and was given a prescription for benzonatate for cough only which she has been using without any relief. Denies any fever/chills, sick contacts, recent travel, chest pain, palpitations, orthopnea, or lower extremity edema. She she is on a prednisone taper(currently on prednisone 30 mg daily) by her sausage wrapper for an ?? Autoimmune disorder(presented with generalized rash and pruritus). Vitals on admission were temperature of 98.4, heart rate remains 3, respiratory rate 24, and O2 sats 95% on 2 L. She had a WBC count of 17.5 with 3 bands, H&H 13/38.3, platelet count 392, sodium 126, potassium 5.1, albumin/creatinine 16/0.9, bicarbonate 20, blood glucose 144, and proBNP 165. Chest x-ray showed No convincing radiographic evidence of pneumonia. She had decreased breath sounds on auscultation, no wheezing was appreciated. Problem list; 1. Acute hypoxic respiratory failure; patient was tachypneic and hypoxic with labored breathing. Improved with supplemental oxygen and nebulizer treatment. 2. COPD exacerbation 3. Chronic Hyponatremia 4. Chronic medical conditions - Admit the patient to general medicine floor - Start the patient on IV Solu-Medrol 40 mg daily. - Hold prednisone. - Start azithromycin. - Follow-up sputum culture - Follow-up blood cultures. - Supplemental oxygen as needed - TRC evaluation - Repeat CBC and BP in a.m. - Continue home medications. DVT prophylaxis; Alps and subcutaneous Lovenox Patient is full code
[2018-05-27 21:55] VITALS: BP 140/80
[2018-05-28 06:34] VITALS: BP 136/84
--- NOTE | 2018-05-28 07:20 | PN- Housestaff ---
See Addendum Memo Escalante 05/28/18 0719: Subjective Follow-up For: Difficulty breathing, dry cough Complaints: pain near ribs when coughing Subjective: Hospital day 1. Patient was seen and examined at the bedside. Overnight patient complained of abdominal pain, currently resolved. Otherwise patient in good spirits, making jokes. Continues to cough regularly. Review of Systems Constitutional: Reports: no symptoms. Respiratory: Reports: cough, short of breath. Gastrointestinal: Denies: abdominal pain (previously experienced). Objective Last 24 Hrs of Vital Signs/I&O Vital Signs Date Time Temp Pulse Resp B/P B/P Pulse O2 O2 Flow FiO2 Mean Ox Delivery Rate 05/28 0942 90 140/62 / 0634 97.6 89 20 136/84 96 Nasal 2.0L Cannula 05/28 0000 Nasal 2.0L Cannula 05/27 2155 97.9 98 20 140/80 91 07/ 2030 Nasal 2.0L Cannula 05/27 1951 97.9 106 22 142/69 96 Nasal 2.0L Cannula / 1833 98.4 101 20 139/74 96 Nasal 2.0L Cannula 07/ 1719 94 Nasal 2.0L Cannula 07 1712 95 Nasal 2.0L Cannula 07/04 1708 103 24 135/73 95 Nasal 2.0L Cannula Intake & Output 05/28 1600 07/05 0800 07/05 0000 Intake Total 300 440 Output Total 200 Balance 300 240 Intake, Oral 300 440 Number 1 Bowel Movements Output, Urine 200 Patient 184 lb Weight Weight Reported by Patient Measurement Method Physical Exam General Appearance: Alert, Oriented X3, Cooperative, Mild Distress Skin: No Rashes, significant bruising on right back Skin Temp/Moisture Exam: Warm/Dry Sepsis Skin Exam (color): Normal for Ethnicity HEENT: Atraumatic, PERRLA, EOMI Neck: Supple, No thryomegaly Cardiovascular: Regular Rate, Normal S1, Normal S2, No Murmurs Lungs: slight wheezing Abdomen: Normal Bowel Sounds, Soft, No Tenderness Neurological: Normal Speech, Strength at 5/5 X4 Ext Extremities: No Edema, Normal Pulses, No Tenderness/Swelling Assessment/Plan Assessment: 82-year-old woman with past medical history of TIA, COPD, pneumothorax, HTN, hyperlipidemia, anxiety, fibromyalgia, insomnia, and depression presented to the ER with difficulty breathing and cough for the past 2 days. Patient noticed that she was having more labored breathing and shortness of breath which brought her to the ER. She also reports dry cough. She went to an urgent care clinic and was given a prescription for benzonatate for cough only, which she has been using without any relief. Denies any fevers, chills, sick contacts, travel, chest pain, palpitations, or lower extremity edema. 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 Problem list: Hypoxia COPD exacerbation Chronic hyponatremia Hyperlipidemia HTN Insomnia Depression Plan: Admitted patient to general medicine floor Started patient on IV Solu-Medrol 40 mg daily Hold home prednisone Started azithromycin 500 mg daily Follow-up sputum and blood cultures Supplemental oxygen as needed, currently on 2 L TRC evaluation CVC in PEEP showed improvement; repeat CBCs and BMP in a.m. Continue home medications DVT prophylaxis: Alps and subcu heparin Patient is full code Problem List: 1. COPD exacerbation 2. Hyponatremia Pain Ratin Pain Location: NA Pain Goal: Remain pain free Pain Plan: NA Tomorrow's Labs & Rationales: Repeat CBCs and BEP to trend WBC and sodium Christian Beckman 05/28/18 1115: Attending MD Review Statement Attending Statement Attending MD Statement: examined this patient, discuss w/resident/PA/DATABASE ADMINISTRATION PROJECT MANAGER, agreed w/resident/PA/DATABASE ADMINISTRATION PROJECT MANAGER, discussed with family, reviewed EMR data (avail), discussed with nursing, discussed with case mgmt, reviewed images, amended to note Attending Assessment/Plan: 82-year-old white female a significant past medical history as documented above. She is smoker in past. The patient amditted here for acute hypoxic respiratroy failure and acute exacerbation of COPD. Overnight admitted. Use of accessory muscles this am. Oxygen suppelemtnation this am 2l nc. Able to apeak in full sentences. Assist with walking Continue IV steroids 40 mg IV every 8h, and azithromycin. hyponatremia asymptomatic. continue current regimen. gi/dvt prophylaxis full code
[2018-05-28 08:25] LABS: ABSOLUTE BASOPHIL COUNT 0 /CUMM (0.0-0.2); ABSOLUTE EOSINOPHIL COUNT 0.4 /CUMM (0.0-0.7); ABSOLUTE GRANULOCYTE CT 12.9 /CUMM (1.4-6.5); ABSOLUTE LYMPH COUNT 1.6 /CUMM (1.2-3.4); ABSOLUTE MONOCYTE COUNT 0.7 /CUMM (0.10-0.60); BASOPHIL % 0 % (0.0-2.0); EOSINOPHIL % 2.5 % (0-5); GRANULOCYTE % 82.7 % (42.2-75.2); MEAN CORPUSCULAR HGB 28.8 PG (27.0-31.0); MEAN CORPUSCULAR HGB CONC 33.9 G/DL (33.0-37.0); MEAN PLATELET VOLUME 8.5 FL (7.4-10.4); PLATELET COUNT 370 /CUMM (130-400); RBC DISTRIBUTION WIDTH 15.8 % (11.5-14.5); RED BLOOD CELL CT 4.35 /CUMM (4.20-5.40); WHITE BLOOD CELL COUNT 15.5 /CUMM (4.8-10.8)
--- NOTE | 2018-05-28 08:35 | PN- Student ---
Mayela Cr 05/28/18 0822: Subjective Subjective: Hospital day 1: Patient was interviewd at bed side. Patient complained of mild abdominal pain overnight but was resolved this morning. Patient had dry cough that radiated to her lower back, and SOB. Goal is to alleviate her dry cough and SOB. Objective Objective: Physical exam: -Patient is oriented, coorporative, no acute distress. -Cardiac: normal S1, S2, no additional murmur, no gallop. -Lungs: mild wheeze. -Abd: tympanic bowel sound, soft, no tenderness upon palpation. Results Results: Laboratory Tests 05/28/18 0615: Sodium Pending, Potassium Pending, Chloride Pending, Carbon Dioxide Pending, Anion Gap Pending, BUN Pending, Creatinine Pending, BUN/Creatinine Ratio Pending , CBC w Diff NO MAN DIFF REQ, RBC 4.35, MCV 85.0, MCH 28.8, MCHC 33.9, RDW 15.8 H, MPV 8.5, Gran % 82.7 H, Lymphocytes % 10.5 L, Monocytes % 4.3, Eosinophils % 2.5, Basophils % 0, Absolute Granulocytes 12.9 H, Absolute Lymphocytes 1.6, Absolute Monocytes 0.7 H, Absolute Eosinophils 0.4, Absolute Basophils 0 05/28/18 0450: Urine Color YEL, Urine Clarity CLEAR, Urine pH 6.0, Ur Specific [place] 1.010, Urine Protein NEG, Urine Ketones NEG, Urine Nitrite NEG, Urine Bilirubin NEG, Urine Urobilinogen 0.2, Ur Leukocyte Esterase NEG, Ur Microscopic SEDIMENT EXAMINED, Urine RBC 1-3, Urine WBC 1-3 H, Urine Bacteria PACKD H, Urine Hemoglobin SMALL H, Urine Glucose NEG 05/27/18 1730: Anion Gap 12, Estimated GFR > 60, BUN/Creatinine Ratio 17.8, Glucose 144 H, Calcium 9.1, Total Bilirubin 0.6, AST 30, ALT 31, Alkaline Phosphatase 63, Troponin I < 0.01, Dzf-[id number]-Ohgnkilcmie Pept 167 H, Total Protein 6.3, Albumin 3.7 , Globulin 2.6, Albumin/Globulin Ratio 1.4, CBC w Diff MAN DIFF ORDERED, RBC 4.51, MCV 84.9, MCH 28.9, MCHC 34.0, RDW 15.5 H, MPV 8.3, Gran % 93.1 H, Lymphocytes % 5.0 L, Monocytes % 1.7, Eosinophils % 0.2, Basophils % 0, Absolute Granulocytes 16.3 H, Segmented Neutrophils 95 H, Band Neutrophils 3, Absolute Lymphocytes 0.9 L, Lymphocytes 2 L, Absolute Monocytes 0.3, Absolute Eosinophils 0, Absolute Basophils 0, Platelet Estimate ADEQUATE, Normochromic RBCs VERIFIED, Anisocytosis 1+, Fld Total RBCs Counted 100 Microbiology 05/27 2045 LOWER RESP: Respiratory Culture - COLB 05/27 2045 LOWER RESP: Gram Stain - COLB 05/27 1759 BLOOD: Blood Culture - RECD 05/27 1730 BLOOD: Blood Culture - RECD Assessment/Plan Assessment: Assessment: Summary: 82yr old female with PMH of CVA, hypertension, hyperlipidemia, COPD, fibromyalgia and depression presented with difficulty breathing and dry cough. Lab showed leukocytosis, WBCs in urine, borderline low sodium and clear CXR. PE showed mild wheezing in all lung peres; otherwise unremarkable. Problem list: - COPD exarcebation. - Chronic hyponatremia (bordeline low). - Hacking dry cough. - Hypertension. - Hyperlipidemia. - Depression. Plan: Plan: - Follow up on blood and sputum cultures. - Continue solumeterol, azirothromycin, and clonazepam. Hold off on home prednisone. - DVT prophylaxis with als and subcu heparin. - Patient is full code. Memo Escalante 05/29/18 1436: Resident Review Statement Resident Statement: examined this patient, reviewed EMR data (avail), agree with medical student
[2018-05-28 14:16] VITALS: BP 146/72
[2018-05-28 22:24] VITALS: BP 154/66
[2018-05-29 06:36] VITALS: BP 134/90
--- NOTE | 2018-05-29 06:44 | PN- Housestaff ---
Memo Escalante 05/29/18 0644: Subjective Follow-up For: Difficulty breathing, dry cough Complaints: pain in accessory muscles when coughing Subjective: Hospital day 2. Patient was seen and examined at bedside. Overnight patient subjectively worsened, increasing pain on coughing. Otherwise in good spirits, making jokes appropriately. Continues to cough regularly, no sputum production. Review of Systems Constitutional: Reports: no symptoms. Respiratory: Reports: cough, short of breath. Objective Last 24 Hrs of Vital Signs/I&O Vital Signs Date Time Temp Pulse Resp B/P B/P Pulse O2 O2 Flow FiO2 Mean Ox Delivery Rate 05/29 0858 100 148/84 05/29 0849 93 Room Air Room Air 05/29 0800 98 Room Air 05/29 0636 97.8 97 18 134/90 94 Room Air 05/29 0000 94 Room Air 05/28 2224 97.8 88 20 154/66 94 Room Air 05/28 1920 95 Room Air / 1600 94 Room Air / 1416 97.8 116 20 146/72 96 /05 1414 Nasal 2.0L Cannula 05/28 1413 95 Nasal 2.0L Cannula Intake & Output 05/29 1600 06 0800 07/ 0000 Intake Total 360 480 Output Total Balance 360 480 Intake, Oral 360 480 Physical Exam General Appearance: Alert, Oriented X3, Cooperative, Mild Distress Skin: No Rashes, No Breakdown Skin Temp/Moisture Exam: Warm/Dry Sepsis Skin Exam (color): Normal for Ethnicity HEENT: Atraumatic, PERRLA, EOMI Neck: Supple, No thryomegaly Lymphatic: Axillary nl, Cervical nl Cardiovascular: Regular Rate, Normal S1, Normal S2, No Murmurs Lungs: slight wheezing, improved from yesterday Abdomen: Normal Bowel Sounds, Soft, No Tenderness Neurological: Normal Gait, Normal Speech, Strength at 5/5 X4 Ext, Normal Tone Extremities: No Edema, Normal Pulses Assessment/Plan Assessment: 82-year-old woman with past medical history of TIA, COPD, pneumothorax, HTN, hyperlipidemia, anxiety, fibromyalgia, insomnia, and depression presented to the ER with difficulty breathing and cough for the past 2 days. Patient noticed that she was having more labored breathing and shortness of breath which brought her to the ER. She also reports dry cough. She went to an urgent care clinic and was given a prescription for benzonatate for cough only, which she has been using without any relief. Denies any fevers, chills, sick contacts, travel, chest pain, palpitations, or lower extremity edema. She is on prednisone taper (currently on prednisone 30 mg daily) by her data assistant for an autoimmune disorder which presented with generalized rash and pruritus. Problem list: Hypoxia COPD exacerbation Chronic hyponatremia Hyperlipidemia HTN Insomnia Depression Plan: Admitted patient to general medicine floor Converted IV Solu-Medrol to prednisone 60 mg p.o. daily Continue azithromycin 500 mg daily Follow-up blood cultures Discontinued oxygen, supplement if needed TRC evaluation appreciated, continue to follow Trialing Tessalon capsules for cough Not treating asymptomatic hyponatremia Continue home medications Anticipate discharge in the next 24 hours Follow up with PCP in 1 week of discharge Problem List: 1. COPD exacerbation Pain Ratin Pain Location: Abdomen, chest, and back Pain Goal: Pain 4 or less Pain Plan: Treat symptoms of cough Tomorrow's Labs & Rationales: None Christian Beckman 05/29/18 1105: Attending MD Review Statement Attending Statement Attending MD Statement: examined this patient, discuss w/resident/PA/PASTEURIZER HELPER, agreed w/resident/PA/PASTEURIZER HELPER, discussed with family, reviewed EMR data (avail), discussed with nursing, discussed with case mgmt, reviewed images, amended to note Attending Assessment/Plan: Patient with clinical improvement. Off oxygen supplemetnation, cough+, minimal use of accesory muscles. UnAble to apeak in full sentences. Taper IV steroids 40 mg IV every 12, transition to PO tomorrow with taper and azithromycin. bronchodilators. hyponatremia asymptomatic. gi/dvt prophylaxis full code. Anticipate discharge planning in next 24 hrs. Follow up with PCP in 1 week of discharge.
--- NOTE | 2018-05-29 07:35 | Patient Discharge Instructions ---
Discharge Instructions General Discharge Information Special Instructions: - Please continue your prednisone taper as prescribed. - Please follow up with your primary care physician within 1-2 weeks of discharge. Inform your primary care physician of this admission to [facility]. - Continue your current medications per discharge instructions. - Please watch for these problems: Fever, Chills, Nausea, Vomiting, Shortness of Breath, Productive Cough, Chest Pain/Discomfort, Abdominal Pain, Active Bleeding or Bloody urine/stool. Diet Continue normal diet: Yes Activity Full Activity/No Limits: Yes Acute Coronary Syndrome Inclusion Criteria At DC or during hospital stay patient has or had the following: ACS DIAGNOSIS No Discharge Core Measures Meds if any: Prescribed or Continued at Discharge Meds if any: NOT Prescribed or Continued at Discharge Congestive Heart Failure Inclusion Criteria At [place] or during hospital stay patient has or had the following: CHF DIAGNOSIS No Discharge Core Measures Meds if any: Prescribed or Continued at Discharge Meds if any: NOT Prescribed or Continued at Discharge Cerebrovascular accident Inclusion Criteria At DC or during hospital stay patient has or had the following: CVA/TIA Diagnosis No Discharge Core Measures Meds if any: Prescribed or Continued at Discharge Meds if any: NOT Prescribed or Continued at Discharge Venous thromboembolism Inclusion Criteria VTE Diagnosis No VTE Type NONE VTE Confirmed by (Test) NONE Discharge Core Measures - Per Current guidelines, there needs to be overlap - treatment for the first 5 days of Warfarin therapy. - If discharged on Warfarin prior to 5 days of - overlap therapy, the patient will need to be - assessed for post discharge needs including - *Post discharge parental anticoagulation - *Warfarin and/or parental anticoagulation education - *Follow up date to check INR post discharge At least 5 days overlap therapy as Inpatient No Meds if any: Prescribed or Continued at Discharge Note: Overlap Therapy is Warfarin and Anticoagulant Meds if any: NOT Prescribed or Continued at Discharge
[2018-05-29] MEDS ORDERED: PREDNISONE10 M2 PO (07:38)
--- NOTE | 2018-05-29 08:30 | PN- Student ---
Mayela Cr 05/29/18 0814: Subjective Subjective: Hospital day 2: Patient was interviewed at bed side. Patient seemed tired and cough often. She slept well overnight. This morning, she complained of steep dry cough that hurted her ribs and lower back. Cough seemed to be worse in the morning and worse compared to yesterday. Goal is to alleviate her cough and stabilize her COPD exarcebation. Objective Objective: Physical exam: - Patient is tired and weak but oriented and coorporative. - Cardiac: normal heart sounds, no additional murmur nor gallop. - Lungs: minimal wheeze. - Abdomen: tympanic bowel sound, no tenderness upon palpation. - Neck: no lymphadenophy. - Extremities: no peripheral edema, warm dry skin. Results Results: Laboratory Tests 05/28/18 0615: Anion Gap 12, Estimated GFR > 60, BUN/Creatinine Ratio 18.9, CBC w Diff NO MAN DIFF REQ, RBC 4.35, MCV 85.0, MCH 28.8, MCHC 33.9, RDW 15.8 H, MPV 8.5, Gran % 82.7 H, Lymphocytes % 10.5 L, Monocytes % 4.3, Eosinophils % 2.5, Basophils % 0, Absolute Granulocytes 12.9 H, Absolute Lymphocytes 1.6, Absolute Monocytes 0.7 H, Absolute Eosinophils 0.4, Absolute Basophils 0 05/28/18 0450: Urine Color YEL, Urine Clarity CLEAR, Urine pH 6.0, Ur Specific [place] 1.010, Urine Protein NEG, Urine Ketones NEG, Urine Nitrite NEG, Urine Bilirubin NEG, Urine Urobilinogen 0.2, Ur Leukocyte Esterase NEG, Ur Microscopic SEDIMENT EXAMINED, Urine RBC 1-3, Urine WBC 1-3 H, Urine Bacteria PACKD H, Urine Hemoglobin SMALL H, Urine Glucose NEG 05/27/18 1730: Anion Gap 12, Estimated GFR > 60, BUN/Creatinine Ratio 17.8, Glucose 144 H, Calcium 9.1, Total Bilirubin 0.6, AST 30, ALT 31, Alkaline Phosphatase 63, Troponin I < 0.01, Yhy-O-Pemqhwaezzj Pept 167 H, Total Protein 6.3, Albumin 3.7 , Globulin 2.6, Albumin/Globulin Ratio 1.4, CBC w Diff MAN DIFF ORDERED, RBC 4.51, MCV 84.9, MCH 28.9, MCHC 34.0, RDW 15.5 H, MPV 8.3, Gran % 93.1 H, Lymphocytes % 5.0 L, Monocytes % 1.7, Eosinophils % 0.2, Basophils % 0, Absolute Granulocytes 16.3 H, Segmented Neutrophils 95 H, Band Neutrophils 3, Absolute Lymphocytes 0.9 L, Lymphocytes 2 L, Absolute Monocytes 0.3, Absolute Eosinophils 0, Absolute Basophils 0, Platelet Estimate ADEQUATE, Normochromic RBCs VERIFIED, Anisocytosis 1+, Fld Total RBCs Counted 100 Microbiology 05/27 2045 LOWER RESP: Respiratory Culture - CAN Cancelled: SPECIMEN NOT RECEIVED IN LABORATORY 05/27 2045 LOWER RESP: Gram Stain - CAN Cancelled: SPECIMEN NOT RECEIVED IN LABORATORY 05/27 1759 BLOOD: Blood Culture - RES 05/27 173 BLOOD: Blood Culture - RES Assessment/Plan Assessment: Summary: 82-year-old female with PMH of CVA, hypertension, hyperlipidemia, COPD, fibromyalgia, and depression presented with severe dry cough, and difficulty breathing. PE show minimal wheezing and lab is unremarkable. Problem list: - COPD exarcebation. - Chronic hyponatremia. - Hacking dry cough. Plan: - Change different cough med: Robitussin to Tessalon + IV prednisone. - Continue other meds. - Follow up on blood cultures. - DVT prophylaxis with Alps. - Patient is full code. Memo Escalante 05/29/18 1438: Resident Review Statement Resident Statement: examined this patient, reviewed EMR data (avail), agree with medical student assessment
[2018-05-29 14:01] VITALS: BP 150/60
[2018-05-29] MEDS ORDERED: AZITHROMYCIN250 M1 PO (15:20)
--- NOTE | 2018-05-29 15:29 | Discharge Summary ---
Visit Information Visit Dates Admission Date: 05/27/18 Discharge Date: 05/30/18 Hospital Course Course Attending Physician: Christian Beckman MD Primary Care Physician: Chico Massey MD Hospital Course: 82-year-old woman with past medical history of TIA, COPD, pneumothorax, HTN, hyperlipidemia, anxiety, fibromyalgia, insomnia, and depression presented to the ER with difficulty breathing and cough for the past 2 days. Patient noticed that she was having more labored breathing and shortness of breath which brought her to the ER. She also reports dry cough. She went to an urgent care clinic and was given a prescription for benzonatate for cough only, which she has been using without any relief. Denies any fevers, chills, sick contacts, travel, chest pain, palpitations, or lower extremity edema. She is on prednisone taper (currently on prednisone 30 mg daily) by her recruitment manager for an autoimmune disorder which presented with generalized rash and pruritus. During the course of her hospital stay, blood cultures grew nothing. Patient was determined to have COPD exacerbation, and was discharged home on prednisone and empiric azithromycin. Admission vitals: Patient was afebrile, pulse was 105, blood pressure 135/73, aspiratory rate 24 Admission laboratory: Labs showed leukocytosis to 17.5, RDW elevated to 15.5% Sodium was low at 126, chlorine 94, carbon dioxide 20. Urinalysis was unremarkable Problem list: Hypoxia COPD exacerbation Chronic hyponatremia Hyperlipidemia HTN Insomnia Depression Plan: Tapered to prednisone 60 mg p.o. daily Continue azithromycin 250mg PO to complete a 5-day course Follow-up blood cultures, NGTD Discontinued oxygen, supplement if needed TRC evaluation appreciated, continue to follow Trialing Tessalon capsules for cough Not treating asymptomatic hyponatremia Continue home medications Anticipate discharge today Follow up with PCP in 1 week of discharge DVT PPX Pharm + ALPS Heart Healthy Diet Full Code Allergies: Coded Allergies: Penicillins (RASH 07/28/16) adhesive (ITCHY AND RASH 07/28/16) cephalexin (From KEFLEX) (RASH AND NAUSEA 07/28/16) doxycycline (RASH AND NAUSEA 07/28/16) erythromycin base (RASH AND NAUSEA 07/28/16) nitrofurantoin (RASH 07/28/16) Pertinent Lab Results: SERVICE DATE: 05/27/18-1712 EXAM TYPE: RAD - XRY-PORTABLE CHEST XRAY IMPRESSION: No convincing radiographic evidence of pneumonia. No significant interval change is noted compared to previous chest x-rays. Disposition Summary Disposition Principal Diagnosis: COPD exacerbation Additional Diagnosis: None Discharge Disposition: home or self care Discharge Instructions General Discharge Information Code Status: Full Code Patient's Diet: Regular Patient's Activity: As tolerated Follow-Up Instructions/Appts: - Please follow up with your primary care physician within 1-2 weeks of discharge. Inform your primary care physician of this admission to [facility]. - Continue your current medications per discharge instructions. - Please watch for these problems: Fever, Chills, Nausea, Vomiting, Shortness of Breath, Productive Cough, Chest Pain/Discomfort, Abdominal Pain, Active Bleeding or Bloody urine/stool. Medications at Discharge Discharge Medications: Continue taking these medications: Esomeprazole (Nexium) 40 MG CAPSULE. 1 Capsule ORAL DAILY Comments: NOT GIVEN IN HOSPITAL Clopidogrel Bisulfate (Plavix) 75 MG TABLET 1 Tablet ORAL DAILY Comments: Last Taken: 05/30/18 Time: 0800AM Valsartan (Valsartan) 160 MG TABLET 1 Tablet ORAL DAILY Qty = 90 Comments: COZAAR GIVEN IN HOSPITAL Last Taken: 04/09/18 Time: 0800AM Tramadol HCl (Tramadol HCl) 50 MG TABLET 1 Tablet ORAL DAILY as needed for PAIN Qty = 90 Comments: NOT GIVEN IN HOSPITAL Montelukast Sodium (Montelukast Sodium) 10 MG TABLET 1 Tablet ORAL DAILY Comments: Last Taken: 05/30/18 Time: 0800AM Alprazolam (Alprazolam) 0.25 MG TABLET 1 Tablet ORAL THREE TIMES DAILY Comments: Last Taken: 05/30/18 Time: 1:42 PM Trazodone HCl (Trazodone HCl) 50 MG TABLET 1 Tablet ORAL TAKE AT BEDTIME Qty = 30 Comments: Last Taken: 05/29/18 Time: 2110PM Multiple Vitamin (Multivitamins) 1 EACH TABLET 1 Tablet ORAL DAILY Comments: NOT GIVEN IN HOSPITAL Jetmore-3 Fatty Acids/Fish Oil (Fish Oil 1,000 MG Softgel) 340 MG-1,000 MG CAPSULE 1 Capsule ORAL DAILY Comments: NOT GIVEN IN HOSPITAL Duloxetine HCl (Cymbalta) 60 MG CAPSULE. 1 Capsule ORAL DAILY Comments: Last Taken:05/30/18 Time:8AM Gabapentin (Neurontin) 300 MG CAPSULE 1 Capsule ORAL THREE TIMES DAILY Comments: NOT GIVEN IN HOSPITAL Benzonatate (Tessalon Perle) 100 MG CAPSULE 1 Capsule ORAL THREE TIMES DAILY Comments: Last Taken: 05/30/18 Time: 1:42 Doxycycline Hyclate (Vibramycin) 100 MG CAPSULE 1 Capsule ORAL TWICE DAILY Start taking the following new medications: Azithromycin (Azithromycin) 250 MG TABLET 250 Milligram ORAL DAILY Qty = 2 No Refills Comments: Last Taken:05/30/18 Time:8AM Prednisone (Prednisone) 10 MG TABLET 1 Tablet ORAL DAILY Qty = 36 No Refills Comments: 05/31: Take 6 tablets, once daily 06/01-: Take 5 tablets, once daily 06/03-: Take 4 tablets, once daily 06/05-: Take 3 tablets, once daily 06/07-: Take 2 tablets, once daily 06/09-: Take 1 tablet, once daily 06/11: STOP Copies To: Shilpa ZULETA,Chico Diaz
[2018-05-29 21:43] VITALS: BP 140/82
[2018-05-30 06:15] VITALS: BP 140/76
--- NOTE | 2018-05-30 06:33 | PN- Housestaff ---
Stella Montiel Terence Li 05/30/18 0633: Subjective Follow-up For: COPD exacerbation Chronic hyponatremia Hyperlipidemia HTN Subjective: No overnight event. Patient remained in RA overnight without specific complaint. Review of Systems Constitutional: Reports: see HPI. Objective Last 24 Hrs of Vital Signs/I&O Vital Signs Date Time Temp Pulse Resp B/P B/P Pulse O2 O2 Flow FiO2 Mean Ox Delivery Rate 05/30 615 97.8 96 20 140/76 93 Room Air 05/30 0000 Room Air 05/29 2143 97.6 85 18 140/82 93 05/29 1910 94 Room Air 05/29 1401 98.6 100 20 150/60 92 Room Air 05/29 0858 100 148/84 05/29 0849 93 Room Air Room Air 05/29 0800 98 Room Air Intake & Output 05/30 0000 05/29 1600 Intake Total 120 360 Output Total Balance 120 360 Intake, IV 20 Intake, Oral 100 360 Physical Exam General Appearance: Alert, Oriented X3, Cooperative, No Acute Distress Cardiovascular: Regular Rate Lungs: Normal Air Movement, mild wheezing BL lungs Abdomen: Normal Bowel Sounds, Soft, No Tenderness, No Hepatospenomegaly Extremities: No Cyanosis, No Edema, Normal Pulses Current Medications: Current Medications Sig/Ranulfo Start time Last Medication Dose Route Stop Time Status Admin Acetaminophen 325 MG Q6P PRN 05/29 1400 AC 05/29 PO 2058 Albuterol Sulfate 3 ML BID 05/28 2100 AC 05/29 INH 1910 Alprazolam 0.25 MG TID 05/27 2253 AC 05/29 PO 06/03 Atorvastatin Calcium 20 MG DAILY 05/28 900 AC 05/29 PO 08 Azithromycin 250 MG DAILY 05/29 900 AC 05/29 PO 0859 Benzonatate 100 MG TID 05/29 900 AC 05/29 PO 2058 Clopidogrel Bisulfate 75 MG DAILY 05/28 900 AC 05/29 PO 08 Cyclobenzaprine HCl 5 MG ONCE ONE 05/29 181 DC 05/29 PO 05/29 Cyclobenzaprine HCl 10 MG 4 TIMES/DAY 05/29 1700 DC PO Duloxetine HCl 60 MG DAILY 05/28 900 AC 05/29 PO 0858 Enoxaparin Sodium 40 MG DAILY 05/28 900 AC 05/29 SC 0857 Guaifenesin 600 MG Q12 05/28 2100 DC 05/28 PO 2052 Losartan Potassium 50 MG DAILY 05/28 900 AC 05/29 PO 08 Methylprednisolone 40 MG Q12 05/29 900 DC 05/29 IV 05/29 Montelukast Sodium 10 MG DAILY 05/28 900 AC 05/29 PO 08 Multivitamins 1 TAB DAILY 05/28 900 AC 05/29 Therapeutic PO 0858 Omeprazole 40 MG DAILY AC 05/28 700 AC 05/30 PO 0549 Prednisone 60 MG DAILY 05/30 900 AC PO Trazodone HCl 50 MG AT BEDTIME 05/27 2300 AC 05/29 PO 2058 Assessment/Plan Assessment: 82-year-old woman with past medical history of TIA, COPD, pneumothorax, HTN, hyperlipidemia, anxiety, fibromyalgia, insomnia, and depression presented to the ER with difficulty breathing and cough for the past 2 days. Patient noticed that she was having more labored breathing and shortness of breath which brought her to the ER. She also reports dry cough. She went to an urgent care clinic and was given a prescription for benzonatate for cough only, which she has been using without any relief. Denies any fevers, chills, sick contacts, travel, chest pain, palpitations, or lower extremity edema. She is on prednisone taper (currently on prednisone 30 mg daily) by her speech therapy teacher for an autoimmune disorder which presented with generalized rash and pruritus. Problem list: Hypoxia COPD exacerbation Chronic hyponatremia Hyperlipidemia HTN Insomnia Depression Plan: Tapered to prednisone 60 mg p.o. daily Continue azithromycin 250mg PO to complete a 5-day course Follow-up blood cultures, NGTD Discontinued oxygen, supplement if needed TRC evaluation appreciated, continue to follow Trialing Tessalon capsules for cough Not treating asymptomatic hyponatremia Continue home medications Anticipate discharge today Follow up with PCP in 1 week of discharge DVT PPX Pharm + ALPS Heart Healthy Diet Full Code Problem List: 1. COPD exacerbation Pain Ratin Pain Location: NA Pain Goal: Remain pain free Pain Plan: see AP Tomorrow's Labs & Rationales: NA Cary Oates MD 05/30/18 1811: Attending MD Review Statement Attending Statement Attending MD Statement: examined this patient, discuss w/resident/PA/TICKET AGENT, agreed w/resident/PA/TICKET AGENT, reviewed EMR data (avail) Attending Assessment/Plan: 82F PMH TIA, COPD, pneumothorax, HTN, hyperlipidemia, anxiety, fibromyalgia, insomnia and depression admitted with COPD exacerbation and respiratory failure, treated with nebulizers and steroids, with improvement. No longer wheezing, feels well, no complaints, stable vitals, labs reviewed. 1. COPD Exacerbation 2. Acute hypoxemic respiratory failure Plan - Stable for discharge home - Prednisone taper - Continue home medications - Outpatient PCP follow up
[2018-05-30 08:15] VITALS: BP 144/70
== END 2018-05-30 17:21 | DRG 191 ==
LOC: ERH 16:59 → 2NA 18:54 → ERHI 18:54 → 2NA 18:54 → ENRESERV 19:30 → ENTRNSPT 20:07 → EDTRNSPT 20:15 → EDTRNSPTSTS 20:15 → 2NA 20:27 → CMPTRNSPT 20:30 → 2NA 05-28 07:45 → ENTRNSPT 05-30 16:59 → 2NA 05-30 17:21 → CMPTRNSPT 05-30 17:23
PROVIDERS: Emergency Medicine; Internal Medicine
DX: J44.1 Chronic obstructive pulmonary disease with (acute) exacerbation (principal); E87.1 Hypo-osmolality and hyponatremia; I10 Essential (primary) hypertension; E78.5 Hyperlipidemia, unspecified; K21.9 Gastro-esophageal reflux disease without esophagitis; R09.02 Hypoxemia; F32.9 Major depressive disorder, single episode, unspecified; Z86.73 Personal history of transient ischemic attack (TIA), and cerebral infarction without residual deficits; M79.7 Fibromyalgia
CPT/HCPCS: 2NASP; 36592; 71045; 81001; 82436; 87040; 87070; 96374; 97110-GO; 97116-GO; 97161-GP; J0456; J1650; J1720; J2920; J7040